=== PATIENT | male | born 1990 | race African-American/Black ===

== ENCOUNTER 2023-05-04 09:52 | Inpatient (IN) | payer OTHER ==
[2023-05-04] MEDS ORDERED: SODIUM CHLORIDE 0.9% 500 ML 500 ML IV STA ×2 (10:00→12:11)
[2023-05-04] MEDS ORDERED: SODIUM CHLORIDE 0.9% 1,000 ML IV STA ×2 (10:02→12:11)
[2023-05-04] MEDS ORDERED: ACETAMINOPHEN IV (For NPO) 1,000 MG in EMPTY BAG 1 BAG IVPB STA (10:03)
--- NOTE | 2023-05-04 10:24 | ED ---
General Adult HPI - General Chief complaint: Fever Stated complaint: abd pain Time Seen by Provider: 05/04/23 09:54 Source: patient, RN notes reviewed Mode of arrival: EMS Limitations: no limitations - History of Present Illness Initial comments: Patient is a pleasant 32-year-old male presenting to the emergency department with abdominal discomfort. Onset of symptoms was yesterday. Discomfort has worsened. Discomfort is right lower abdomen/inguinal region. Patient has associated fevers. Also started yesterday. No history of similar symptoms pr eviously. Patient has been at [facility] for last 2 weeks secondary to history of cocaine use. Patient denies any history of injecting drugs. - Related Data Allergies Allergy/AdvReac Type Severity Reaction Status Date / Time iodine Allergy Itching Verified 05/04/23 13:36 Review of Systems ROS Statement: Those systems with pertinent positive or pertinent negative responses have been documented in the HPI. ROS Other: All systems not noted in ROS Statement are negative. Constitutional: Reports: as per HPI, fever, chills Eyes: Denies: eye pain ENT: Denies: ear pain Respiratory: Denies: cough Cardiovascular: Denies: chest pain Endocrine: Denies: fatigue Gastrointestinal: Reports: as per HPI, abdominal pain, nausea. Denies: vomiting Genitourinary: Reports: other (Right inguinal discomfort). Denies: urgency, dysuria, frequency, hematuria, discharge, testicular pain, testicular mass Skin: Denies: rash Neurological: Denies: weakness Past Medical History Past Medical History: Diabetes Mellitus Additional Past Medical History / Comment(s): Type one diabetes, osteosarcoma, Additional Past Surgical History / Comment(s): right knee replacement, right lobectomy Past Psychological History: No Psychological Hx Reported Smoking Status: Current every day smoker, Vaper Past Alcohol Use History: None Reported Past Drug Use History: Cocaine General Exam Limitations: no limitations General appearance: alert, in no apparent distress Head exam: Present: normocephalic Eye exam: Present: normal appearance ENT exam: Present: normal oropharynx Neck exam: Present: normal inspection Respiratory exam: Present: normal lung sounds bilaterally Cardiovascular Exam: Present: regular rate, normal rhythm Expanded Peripheral pulses: 2+: Posterior Tibialis (R), Posterior Tibialis (L) GI/Abdominal exam: Present: soft, tenderness (Mild right lower abdomen), normal bowel sounds. Absent: distended, guarding, rebound, rigid, pulsatile mass exam: Present: other (Right inguinal tender lymphadenopathy). Absent: testicular tenderness, urethral discharge, scrotal swelling Extremities exam: Present: normal inspection Neurological exam: Present: alert Psychiatric exam: Present: normal affect, normal mood Skin exam: Present: normal color Course Vital Signs 05/04/23 05/04/23 09:55 12:08 Temperature 103.1 F H 102.5 F H Pulse Rate 135 H 122 H Respiratory 20 18 Rate Blood Pressure 114/74 89/55 O2 Sat by Pulse 97 99 Oximetry EKG Findings - EKG Results: EKG: interpreted by ERMD, sinus rhythm, normal axis, normal QRS, normal ST/T EKG shows: tachycardia Medical Decision Making - Medical Decision Making Was pt. sent in by a medical professional or institution (, [facility], HEMMING AND TACKING MACHINE OPERATOR, urgent care, hospital, or skilled nursing...) When possible be specific @ -Patient was sent in by [place] Did you speak to anyone other than the patient for history (EMS, parent, family, police, friend...)? What history was obtained from this source @ -No Did you review nursing and triage notes (agree or disagree)? Why? @ -I reviewed and agree with nursing and triage notes Were old charts reviewed (outside hosp., previous admission, EMS record, old EKG, old radiological studies, urgent care reports/EKG's, skilled nursing records)? Report findings @ -Chart review from [place] Differential Diagnosis (chest pain, altered mental status, abdominal pain women, abdominal pain men, vaginal bleeding, weakness, fever, dyspnea, syncope, headache, dizziness, GI bleed, back pain, seizure, CVA, palpatations, mental health, musculoskeletal)? @ -Differential Abdominal Pain Men: Appendicitis, cholecystitis, diverticulosis, ischemic bowel, pancreatitis, he patitis, UTI, gastroenteritis, AAA, incarcerated hernia, bowel obstruction, constipation, inflammatory bowel, hepatitis, peptic ulcer disease, splenic infarction, perforated viscus, testicular torsion, this is not meant to be an all-inclusive list EKG interpreted by me (3pts min.). @ -As above X-rays interpreted by me (1pt min.). @ -None done CT interpreted by me (1pt min.). @ -Computed tomography scan does have lymphadenopathy U/S interpreted by me (1pt. min.). @ -None done What testing was considered but not performed or refused? (CT, X-rays, U/S, labs)? Why? @ -None What meds were considered but not given or refused? Why? @ -None Did you discuss the management of the patient with other professionals (professionals i.e. , PA, HEMMING AND TACKING MACHINE OPERATOR, lab, RT, psych nurse, social research assistant, spanish lecturer, teacher, business services officer, community case manager)? Give summary @ -Case was discussed with Dr. Miles will admit covering hospital call. He will come evaluate patient and requests no consults at this time. Was smoking cessation discussed for >3mins.? @ -No Was critical care preformed (if so, how long)? @ -No Were there social determinants of health that impacted care today? How? (Homelessness, low income, unemployed, alcoholism, drug addiction, transportat ion, low edu. Level, literacy, decrease access to med. care, [place] [facility], rehab)? @ -No Was there de-escalation of care discussed even if they declined (Discuss DNR or withdrawal of care, Hospice)? DNR status @ -No What co-morbidities impacted this encounter? (DM, HTN, Smoking, COPD, CAD, Cancer, CVA, ARF, Chemo, Hep., AIDS, mental health diagnosis, sleep apnea, morbid obesity)? @ -None Was patient admitted / discharged? Hospital course, mention meds given and route, prescriptions, significant lab abnormalities, going to OR and other pertinent info. @ -Patient reevaluated and improved. Blood pressure improved with fluid boluses. Etiology of fevers unclear at this time. Patient will be admitted with further evaluation. IV antibiotics will be continued. Undiagnosed new problem with uncertain prognosis? @ -No Drug Therapy requiring intensive monitoring for toxicity (Heparin, Nitro, Insulin, Cardizem)? @ -No Were any procedures done? @ -No Diagnosis/symptom? @ -Lymphadenopathy, abdominal pain Acute, or Chronic, or Acute on Chronic? @ -Acute Uncomplicated (without systemic symptoms) or Complicated (systemic symptoms)? @ -Complicated with band cells and toxic granulation Side effects of treatment? @ -No Exacerbation, Progression, or Severe Exacerbation? @ -No Poses a threat to life or bodily function? How? (Chest pain, [place], [place], pneumonia, PE, COPD, DKA, ARF, appy, cholecystitis, CVA, Diverticulitis, Homicidal, Suicidal, threat to staff... and all critical care pts) @ -No - Lab Data Result diagrams: 05/04/23 10:23 05/04/23 10:23 Lab Results 05/04/23 05/04/23 05/04/23 Range/Units 10:23 10:23 10:23 WBC 9.7 (3.8-10.6) k/uL RBC 4.20 L (4.30-5.90) m/uL Hgb 11.3 L (13.0-17.5) gm/dL Hct 32.9 L (39.0-53.0) % MCV 78.2 L (80.0-100.0) fL MCH 27.0 (25.0-35.0) pg MCHC 34.5 (31.0-37.0) g/dL RDW 17.2 H (11.5-15.5) % Plt Count 160 (150-450) k/uL MPV 9.1 Neutrophils % (Manual) 78 % Band Neuts % (Manual) 18 % Lymphocytes % (Manual) 3 % Monocytes % (Manual) 1 % Basophils % (Manual) 1 % Metamyelocytes % 1 % Neutrophils # (Manual) 9.30 H (1.3-7.7) k/uL Lymphocytes # (Manual) 0.29 L (1.0-4.8) k/uL Monocytes # (Manual) 0.10 (0-1.0) k/uL Basophils # (Manual) 0.10 (0-0.2) k/uL Metamyelocytes # (Man) 0.10 H (0) k/uL Nucleated RBCs 0 (0-0) /100 WBC Manual Slide Review Performed Toxic Granulation Present Anisocytosis Slight Microcytosis Slight PT 9.8 L (10.0-12.5) sec INR 0.9 (<1.2) APTT 25.7 (22.0-30.0) sec Sodium 133 L (137-145) mmol/L Potassium 4.4 (3.5-5.1) mmol/L Chloride 105 (98-107) mmol/L Carbon Dioxide 23 (22-30) mmol/L Anion Gap 5 mmol/L BUN 14 (9-20) mg/dL Creatinine 0.64 L (0.66-1.25) mg/dL Est GFR (CKD-EPI)AfAm >90 (>60 ml/min/1.73 sqM) Est GFR (CKD-EPI)NonAf >90 (>60 ml/min/1.73 sqM) Glucose 138 H (74-99) mg/dL Plasma Lactic Acid Willie (0.7-2.0) mmol/L Calcium 8.5 (8.4-10.2) mg/dL Total Bilirubin 0.9 (0.2-1.3) mg/dL AST 65 H (17-59) U/L ALT 60 H (4-49) U/L Alkaline Phosphatase 67 (38-126) U/L Total Protein 6.1 L (6.3-8.2) g/dL Albumin 3.2 L (3.5-5.0) g/dL Amylase 89 (30-110) U/L Lipase 41 (23-300) U/L Influenza Type A (PCR) (Not Detectd) Influenza Type B (PCR) (Not Detectd) RSV (PCR) (Not Detectd) SARS-CoV-2 (PCR) (Not Detectd) 05/04/23 05/04/23 Range/Units 10:23 10:23 WBC (3.8-10.6) k/uL RBC (4.30-5.90) m/uL Hgb (13.0-17.5) gm/dL Hct (39.0-53.0) % MCV (80.0-100.0) fL MCH (25.0-35.0) pg MCHC (31.0-37.0) g/dL RDW (11.5-15.5) % Plt Count (150-450) k/uL MPV Neutrophils % (Manual) % Band Neuts % (Manual) % Lymphocytes % (Manual) % Monocytes % (Manual) % Basophils % (Manual) % Metamyelocytes % % Neutrophils # (Manual) (1.3-7.7) k/uL Lymphocytes # (Manual) (1.0-4.8) k/uL Monocytes # (Manual) (0-1.0) k/uL Basophils # (Manual) (0-0.2) k/uL Metamyelocytes # (Man) (0) k/uL Nucleated RBCs (0-0) /100 WBC Manual Slide Review Toxic Granulation Anisocytosis Microcytosis PT (10.0-12.5) sec INR (<1.2) APTT (22.0-30.0) sec Sodium (137-145) mmol/L Potassium (3.5-5.1) mmol/L Chloride (98-107) mmol/L Carbon Dioxide (22-30) mmol/L Anion Gap mmol/L BUN (9-20) mg/dL Creatinine (0.66-1.25) mg/dL Est GFR (CKD-EPI)AfAm (>60 ml/min/1.73 sqM) Est GFR (CKD-EPI)NonAf (>60 ml/min/1.73 sqM) Glucose (74-99) mg/dL Plasma Lactic Acid Willie 2.5 H* (0.7-2.0) mmol/L Calcium (8.4-10.2) mg/dL Total Bilirubin (0.2-1.3) mg/dL AST (17-59) U/L ALT (4-49) U/L Alkaline Phosphatase (38-126) U/L Total Protein (6.3-8.2) g/dL Albumin (3.5-5.0) g/dL Amylase (30-110) U/L Lipase (23-300) U/L Influenza Type A (PCR) Not Detected (Not Detectd) Influenza Type B (PCR) Not Detected (Not Detectd) RSV (PCR) Not Detected (Not Detectd) SARS-CoV-2 (PCR) Not Detected (Not Detectd) Disposition Clinical Impression: Lymphadenopathy, Abdominal pain Disposition: ADMITTED IP TO THIS HOSP Condition: Serious Is patient prescribed a controlled substance at d/c from ED?: No Referrals: None,Stated [Primary Care Provider] - 1-2 days Time of Disposition: 13:40
[2023-05-04 11:07] LABS: Anisocytosis Slight; HCT 32.9 % (39.0-53.0); HGB 11.3 gm/dL (13.0-17.5); INR 0.9 (<1.2); MCHC 34.5 g/dL (31.0-37.0); MCV 78.2 fL (80.0-100.0); Mean Platelet Volume 9.1; Microcytosis Slight; Partial Thromboplastin Time 25.7 sec (22.0-30.0); Platelet Count 160 k/uL (150-450); Prothrombin Time 9.8 sec (10.0-12.5); RDW 17.2 % (11.5-15.5); WBC 9.7 k/uL (3.8-10.6)
[2023-05-04 11:16] LABS: ALT 60 U/L (4-49); Albumin 3.2 g/dL (3.5-5.0); Anion Gap 5 mmol/L; Blood Urea Nitrogen 14 mg/dL (9-20); Calcium 8.5 mg/dL (8.4-10.2); Glucose 138 mg/dL (74-99); Sodium 133 mmol/L (137-145); Total Bilirubin 0.9 mg/dL (0.2-1.3)
[2023-05-04 11:46] LABS: Band Neutrophils % 18 %; Lymphocytes # (M) 0.29 k/uL (1.0-4.8); Metamyelocytes % 1 %; Neutrophils % (M) 78 %; Nucleated Red Blood Cells 0 /100 WBC (0-0); Total Cells Counted 200
[2023-05-04 11:48] LABS: Toxic Granulation Present
[2023-05-04 12:00] LABS: AST 65 U/L (17-59); African American GFR (CKD) >90 (>60 ml/min/1.73 sqM); Alkaline Phosphatase 67 U/L (38-126); Amylase 89 U/L (30-110); Carbon Dioxide 23 mmol/L (22-30); Chloride 105 mmol/L (98-107); Lipase 41 U/L (23-300); Non-African American GFR(CKD) >90 (>60 ml/min/1.73 sqM); Potassium 4.4 mmol/L (3.5-5.1); Total Protein 6.1 g/dL (6.3-8.2)
[2023-05-04] MEDS ORDERED: FAMOTIDINE 20 MG/2 ML VIAL IV STA (12:05)
[2023-05-04] MEDS ORDERED: methylPREDNISolone SOD SUCCI 125 MG/2 ML VIAL IV STA (12:05)
[2023-05-04] MEDS ORDERED: diphenhydrAMINE 50 MG/ML 1 ML VIAL IVP STA (12:05)
[2023-05-04] MEDS ORDERED: PIPERACILLIN-TAZOBACTAM 3.375 GM in SODIUM CHLORIDE 0.9% 100 ML IVPB STA (12:07)
--- NOTE | 2023-05-04 13:16 | CT ---
EXAMINATION TYPE: CT abdomen pelvis w con DATE OF EXAM: 05/04/2023 COMPARISON: None INDICATION: fever and rt groin pain DLP: 899.6 mGycm, Automated exposure control for dose reduction was used. CONTRAST: 76ml mL of Isovue 300. Study performed without Oral Contrast TECHNIQUE: Axial images were obtained from above the diaphragm to the pubic rami in the axial plane a t 5 mm thick sections. Reconstructed images are reviewed on the computer in the coronal plane. FINDINGS: Limited CT sections are obtained the lung bases. Some mild infiltrates in the posterior right lung b ase. Correlate for atelectasis. Early pneumonia could be considered.. CT ABDOMEN: Liver: There is moderate fatty infiltration of the liver. Spleen: Normal Pancreas: Normal Adrenal glands: The adrenal glands are normal. Gallbladder: Normal Kidneys: No masses are evident. No hydronephrosis is present. Tiny cortical renal cysts on the post erior lateral left mid kidney. Punctate nonobstructing inferior pole right renal else indications pre sent. Aorta: Normal Inferior vena cava: Normal. CT PELVIS: Fecal debris is throughout the colon. There are fluid filled small bowel loops which are at the upper limits for normal for size. No dilated loops of small bowel are evident. Correlate for ileus. There are loops of bowel which are incompletely distended or lack oral contrast limiting their evaluation. Appendix: Small portion of the appendix visualized appears normal. No suspicious inflammatory changes are evident. Very minimal fluid may be inferior to the cecum. Urinary bladder: Normal. Genitourinary structures: Prostate appears normal. Osseous structures: No suspicious lytic or sclerotic lesions. Lymphadenopathy: No retrocrural adenopathy enlarged by CT criteria is evident. No periaortic or retro caval enlarged lymphadenopathy is evident. There are scattered small retrocaval lymph nodes. No suspi cious mesenteric adenopathy. There may be right iliac chain enlarged nodes measuring 1.1 cm there are prominent right inguinal lymph nodes present. 1.5 and 1.0 cm. Additional adenopathy 1.7 and 2.0 cm y our inferior right inguinal lymph node. There may be some diffuse lower extremity edema greater on th e right. IMPRESSION: 1. Enlarged lymphadenopathy within right inguinal region. Some intrapelvic iliac chain adenopathy ma y also be present on the right. Additional workup is recommended. Consider lymphoma within the differ ential. Other etiologies should be considered. 2. Mild fecal retention. Some ileus within small bowel loops may be present. No definite obstruction identified. 3. Nonobstructing renal stones present bilaterally. 4. Minimal infiltrate at the right lung base. Correlate for atelectasis or pneumonia.
[2023-05-04] MEDS ORDERED: NALOXONE 0.4 MG/ML 1 ML VIAL IV PRN (13:41)
[2023-05-04] MEDS: SODIUM CHLORIDE 0.9% 1,000 ML IV SCH ×2 (13:54→23:21)
--- NOTE | 2023-05-04 14:37 | US ---
EXAMINATION TYPE: US scrotum with doppler. Grayscale and color Doppler Duplex imaging performed of josé luis patricia scrotum. DATE OF EXAM: 05/04/2023 COMPARISON: NONE CLINICAL INDICATION: Male, 32 years old with history of Inguinal pain; Groin pain, fever EXAM MEASUREMENTS: TESTICLES: Right Testicle: 3.5 x 1.4 x 2.7 cm Left Testicle: 3.1 x 1.3 x 2.0 cm EPIDIDYMIS HEAD: Right Epididymis: 0.8 cm Left Epididymis: 0.9 cm Doppler performed to assess for testicular vascularity; good bilateral color flow and waveforms are s een. There is no evidence of testicular torsion. Presence of hydroceles: No Presence of varicoceles: No Small left epi head cyst= 0.4 cm, otherwise no abnormality visualized at this time IMPRESSION: 1. No suspicious acute ultrasound abnormality bilateral testicles
[2023-05-04] MEDS ORDERED: VANCOMYCIN IV PER PHARMACY 1 EACH MISC MISCELLANE PRN (14:39)
[2023-05-04] MEDS ORDERED: VANCOMYCIN 1,500 MG in SODIUM CHLORIDE 0.9% 500 ML 500 ML IVPB ONE (15:00)
--- NOTE | 2023-05-04 15:33 | P.HPIM ---
History of Present Illness H&P Date: 05/04/23 Patient is a 32-year-old male with history of cocaine use polysubstance, nicotine dependence presenting with fevers and chills from [place]. His only complaint is right leg pain mostly in the right inguinal area. He also had some nausea and vomiting. Otherwise, he was having fevers and rigors. He denies any chest pain, shortness of breath, cough, abdominal pain, urinary or bowel complaints. He admits to snorting cocaine, and taking Linda orally, but denies any IV drug use. He smokes about half pack a day. He denies any significant alcohol use. In the ED, temperature was 103.1, pulse 135, respiratory rate 20, blood pressure 114/74, saturating at 97% on room air. EKG showed sinus tachycardia. Abdominal pelvis CT showed enlarged lymphadenopathy within the right inguinal region, some intrapelvic iliac chain adenopathy, mild fecal retention, some ileus, nonobstructing renal stones bilaterally, minimal infiltrate at the right lung base. WBC 9.7, hemoglobin 11.3, platelet 160, band neutrophils 18%, with toxic granulation, sodium 133, creatinine 0.64, lactate 2.5, total bili 0.9, AST 65, ALT 60, ALP 67, lipase 41, respiratory viral panel negative. Patient started on Zosyn 3.375 g every 8 hours, also given 2 L of normal saline. Patient being admitted for severe sepsis. Pertinent positives and negatives as discussed in HPI, a complete review of systems was performed and all other systems are negative. Patient seen and examined at bedside. Vital signs reviewed General: nontoxic, no distress, appears at stated age Derm: warm, dry, right great toe ulceration on the plantar aspect with some purulence, otherwise warm lower extremity Head: atraumatic, normocephalic, symmetric Eyes: EOMI, no lid lag, anicteric sclera, pupils equal round reactive to light ENT: Nose and ears atraumatic Neck: No thyromegaly, supple Mouth: no lip lesion, mucus membranes moist Cardiovascular: S1S2 reg, no murmur, bilateral lower extremity edema Lungs: clear to auscultation bilateral, no rhonchi, no rales, no wheeze, no accessory muscle use Abdominal: soft, nontender to palpation, no guarding, no appreciable organomegaly Ext: no gross muscle atrophy, muscle strength muscle strength 5 out of 5 in all 4 extremities, no contractures Neuro: CN II-XII grossly intact Psych: Alert, oriented, appropriate affect Assessment/Plan: Active: Severe sepsis, with likely source right lower extremity Inguinal lymphadenopathy Polysubstance use Lactic acidosis Transaminitis -Patient is status post 2 L of normal saline, continue normal saline at 130 cc an hour -Zosyn 3.375 g every 8 hours IV, also started on vancomycin pharmacy to dose, monitor renal function -Tylenol as needed, ibuprofen as needed -Repeat lactate -ESR and CRP -Blood cultures pending -Right foot x-rays ordered -ID consulted -Patient has allergic to iodine, already received 125 mg of IV Solu-Medrol, and IV Benadryl and IV Pepcid for his previous scan, consider repeating another CT of right lower extremity The patient is admitted with an anticipated greater than 2 midnight stay as inpatient status for evaluation of. Severe sepsis Surrogate decision-maker: None listed CODE STATUS: Full code DVT prophylaxis: Subcu heparin Anticipated discharge date: Pending clinical course Anticipated discharge place: Pending clinical course A total of 66minutes was spent on the care of this complex patient more than 50% of the time was spent in counseling and care coordination. Past Medical History Past Medical History: Diabetes Mellitus Additional Past Medical History / Comment(s): Type one diabetes, osteosarcoma, Additional Past Surgical History / Comment(s): right knee replacement, right lobectomy Past Psychological History: No Psychological Hx Reported Smoking Status: Current every day smoker, Vaper Past Alcohol Use History: None Reported Past Drug Use History: Cocaine Medications and Allergies Home Medications Medication Instructions Recorded Confirmed Type Acetaminophen Tab [Tylenol] 650 mg PO Q4H PRN 05/04/23 05/04/23 History Calcium/Magnesium/Zinc/Vitamin 1 tab PO TID PRN 05/04/23 05/04/23 History D(334/134/5mg) Ibuprofen [Motrin] 600 mg PO Q6HR PRN 05/04/23 05/04/23 History Icy Hot Topical Cream 1 applic TOPICAL DIRECTED PRN 05/04/23 05/04/23 History Insulin Glargine,Hum.rec.anlog 25 units SQ HS 05/04/23 05/04/23 History [Lantus Solostar Pen] Insulin Regular, Human [NovoLIN R] See Protocol SQ ACHS 05/04/23 05/04/23 History Loperamide [Imodium] 4 mg PO QID PRN 05/04/23 05/04/23 History Mag Hydrox/Aluminum Hyd/Simeth 30 ml PO Q4H PRN 05/04/23 05/04/23 History [Mylanta Maximum Strength Liq] Magnesium Hydroxide [Milk of 2,400 mg PO BID PRN 05/04/23 05/04/23 History Magnesia] Melatonin 5 mg PO HS 05/04/23 05/04/23 History Mirtazapine [Remeron] 15 mg PO HS 05/04/23 05/04/23 History Multivitamins, Thera [Multivitamin 1 tab PO DAILY 05/04/23 05/04/23 History (formulary)] Nicotine 14Mg/24Hr Patch [Habitrol 1 patch TRANSDERM DAILY 05/04/23 05/04/23 History 14Mg/24Hr Patch] Thiamine [Vitamin B-1] 100 mg PO DAILY 05/04/23 05/04/23 History busPIRone HCl [Buspar] 10 mg PO TID 05/04/23 05/04/23 History Allergies Allergy/AdvReac Type Severity Reaction Status Date / Time iodine Allergy Itching Verified 05/04/23 13:36 Physical Exam Vitals: Vital Signs Temp Pulse Resp BP Pulse Ox 05/04/23 15:00 117 H 20 114/70 99 05/04/23 13:30 100.6 F H 126 H 26 H 113/70 100 05/04/23 12:08 102.5 F H 122 H 18 89/55 99 05/04/23 09:55 103.1 F H 135 H 20 114/74 97 Intake and Output 05/04/23 05/04/23 05/04/23 06:59 14:59 22:59 Other: Weight 86.6 kg Results CBC & Chem 7: 05/04/23 10:23 05/04/23 10:23 Labs: Abnormal Lab Results - Last 24 Hours (Table) 05/04/23 05/04/23 05/04/23 Range/Units 10:23 10:23 10:23 RBC 4.20 L (4.30-5.90) m/uL Hgb 11.3 L (13.0-17.5) gm/dL Hct 32.9 L (39.0-53.0) % MCV 78.2 L (80.0-100.0) fL RDW 17.2 H (11.5-15.5) % Neutrophils # (Manual) 9.30 H (1.3-7.7) k/uL Lymphocytes # (Manual) 0.29 L (1.0-4.8) k/uL Metamyelocytes # (Man) 0.10 H (0) k/uL PT 9.8 L (10.0-12.5) sec Sodium 133 L (137-145) mmol/L Creatinine 0.64 L (0.66-1.25) mg/dL Glucose 138 H (74-99) mg/dL Plasma Lactic Acid Willie (0.7-2.0) mmol/L AST 65 H (17-59) U/L ALT 60 H (4-49) U/L Total Protein 6.1 L (6.3-8.2) g/dL Albumin 3.2 L (3.5-5.0) g/dL 05/04/23 Range/Units 10:23 RBC (4.30-5.90) m/uL Hgb (13.0-17.5) gm/dL Hct (39.0-53.0) % MCV (80.0-100.0) fL RDW (11.5-15.5) % Neutrophils # (Manual) (1.3-7.7) k/uL Lymphocytes # (Manual) (1.0-4.8) k/uL Metamyelocytes # (Man) (0) k/uL PT (10.0-12.5) sec Sodium (137-145) mmol/L Creatinine (0.66-1.25) mg/dL Glucose (74-99) mg/dL Plasma Lactic Acid Willie 2.5 H* (0.7-2.0) mmol/L AST (17-59) U/L ALT (4-49) U/L Total Protein (6.3-8.2) g/dL Albumin (3.5-5.0) g/dL
--- NOTE | 2023-05-04 15:56 | XR ---
EXAMINATION TYPE: XR foot complete RT DATE OF EXAM: 05/04/2023 COMPARISON: None HISTORY: Right foot ulcer TECHNIQUE: 3 view right foot FINDINGS: No acute fracture or dislocation is evident. Joint spaces appear preserved. Patient's foot ulcer is not identified. No suspicious cortical erosion to suggest osteomyelitis identified. No radio paque foreign body is evident. Follow-up 3 phase bone scan could be performed for sufficient suspicion of osteomyelitis. IMPRESSION: 1. No acute osseous abnormality radiographically apparent.
[2023-05-04] MEDS ORDERED: DEXTROSE 50% SYRINGE 50 ML IVP PRN ×2 (16:04)
[2023-05-04] MEDS ORDERED: PIPERACILLIN-TAZOBACTAM 3.375 GM in SODIUM CHLORIDE 0.9% 100 ML IVPB SCH (17:00)
[2023-05-04 17:34] LABS: Glucose,Whole Blood 239 mg/dL (70-110)
[2023-05-04] MEDS: ACETAMINOPHEN TAB 325 MG TAB PO PRN (17:43)
[2023-05-04] MEDS: CEFEPIME 2 GM in SODIUM CHLORIDE 0.9% 100 ML IVPB SCH (17:47)
[2023-05-04] MEDS: INSULIN ASPART (NovoLOG) 100 UNIT/ML VIAL SQ SCH ×2 (17:51→20:57)
[2023-05-04 18:08] LABS: Appearance,Urine Clear (Clear); Bilirubin,Urine Negative (Negative); Blood,Urine Moderate (Negative); Color,Urine Colorless; Glucose,Urine (UA) 2+ (Negative); Ketones,Urine Trace (Negative); Leukocyte Esterase,Urine Negative (Negative); Nitrite,Urine Negative (Negative); PH, Urine 6.5 (5.0-8.0); Protein,Urine 1+ (Negative); RBC,Urine 56 /hpf (0-5); Specific Gravity,Urine 1.032 (1.001-1.035); Urobilinogen,Urine <2.0 mg/dL (<2.0); WBC,Urine 2 /hpf (0-5)
[2023-05-04 20:36] LABS: Glucose,Whole Blood 327 mg/dL (70-110)
[2023-05-04] MEDS: IBUPROFEN 400 MG TAB PO PRN (20:56)
[2023-05-04] MEDS: MIRTAZAPINE 15 MG TAB PO SCH (20:56)
[2023-05-04] MEDS: busPIRone HCl 10 MG TAB PO SCH (20:57)
[2023-05-05] MEDS ORDERED: VANCOMYCIN 1,500 MG in SODIUM CHLORIDE 0.9% 500 ML 500 ML IVPB SCH ×2
[2023-05-05] MEDS: CEFEPIME 2 GM in SODIUM CHLORIDE 0.9% 100 ML IVPB SCH ×4 (00:40→22:47)
[2023-05-05] MEDS: SODIUM CHLORIDE 0.9% 1,000 ML IV SCH ×3 (01:39→20:14)
[2023-05-05] MEDS: LOPERAMIDE 2 MG CAP PO PRN ×2 (03:33→20:11)
[2023-05-05 06:32] LABS: Glucose,Whole Blood 287 mg/dL (70-110)
[2023-05-05] MEDS: INSULIN ASPART (NovoLOG) 100 UNIT/ML VIAL SQ SCH ×4 (06:52→20:11)
[2023-05-05] MEDS: THIAMINE 100 MG TAB PO SCH (08:01)
[2023-05-05] MEDS: busPIRone HCl 10 MG TAB PO SCH ×3 (08:01→22:47)
[2023-05-05] MEDS: NICOTINE 14MG/24HR PATCH TRANSDERM SCH ×2 (08:01→08:09)
[2023-05-05] MEDS: PANTOPRAZOLE 40 MG/10 ML VIAL IV SCH (08:01)
--- NOTE | 2023-05-05 08:59 | XR ---
EXAMINATION TYPE: XR chest 2V DATE OF EXAM: 05/05/2023 COMPARISON: None INDICATION: Fever TECHNIQUE: Frontal and lateral views of the chest are obtained. FINDINGS: The heart size is normal. The pulmonary vasculature is normal. Small right pleural effusion is present.. No suspicious consolidations. IMPRESSION: 1. Small right pleural effusion
[2023-05-05 09:46] LABS: Anisocytosis Slight; Basophils % (A) 0 %; Eosinophils % (A) 0 %; HCT 32.9 % (39.0-53.0); HGB 10.9 gm/dL (13.0-17.5); Lymphocytes # (A) 0.5 k/uL (1.0-4.8); Lymphocytes % (A) 6 %; MCH 26.7 pg (25.0-35.0); MCHC 33.2 g/dL (31.0-37.0); MCV 80.6 fL (80.0-100.0); Mean Platelet Volume 8.5; Microcytosis Slight; Monocytes # (A) 0.3 k/uL (0-1.0); Monocytes % (A) 3 %; Neutrophils # (A) 7.7 k/uL (1.3-7.7); Neutrophils % (A) 89 %; Platelet Count 172 k/uL (150-450); RBC 4.08 m/uL (4.30-5.90); RDW 17.2 % (11.5-15.5); WBC 8.6 k/uL (3.8-10.6)
[2023-05-05 10:21] LABS: ALT 64 U/L (4-49); AST 60 U/L (17-59); African American GFR (CKD) >90 (>60 ml/min/1.73 sqM); Alkaline Phosphatase 61 U/L (38-126); Anion Gap 5 mmol/L; Blood Urea Nitrogen 16 mg/dL (9-20); Calcium 8.4 mg/dL (8.4-10.2); Carbon Dioxide 21 mmol/L (22-30); Chloride 106 mmol/L (98-107); Globulin 2.9 g/dL; Glucose 261 mg/dL (74-99); Non-African American GFR(CKD) >90 (>60 ml/min/1.73 sqM); Potassium 4.9 mmol/L (3.5-5.1); Sodium 132 mmol/L (137-145); Total Protein 5.9 g/dL (6.3-8.2)
[2023-05-05 11:20] LABS: Glucose,Whole Blood 317 mg/dL (70-110)
--- NOTE | 2023-05-05 13:51 | P.PN ---
Subjective Progress Note Date: 05/05/23 Hospital Course: 32-year-old male with history of cocaine use polysubstance, nicotine dependence presenting with fevers and chills from [place]. In the ED, temperature was 103.1, pulse 135, respiratory rate 20, blood pressure 114/74, saturating at 97% on room air. EKG showed sinus tachycardia. Abdominal pelvis CT showed enlarged lymphadenopathy within the right inguinal region, some intrapelvic iliac chain adenopathy, mild fecal retention, some ileus, nonobstructing renal stones bilaterally, minimal infiltrate at the right lung base. WBC 9.7, hemoglobin 11.3, platelet 160, band neutrophils 18%, with toxic granulation, sodium 133, creatinine 0.64, lactate 2.5, total bili 0.9, AST 65, ALT 60, ALP 67, lipase 41, respiratory viral panel negative. Patient started on Zosyn 3.375 g every 8 ho urs, also given 2 L of normal saline. Patient being admitted for severe sepsis. Currently on IV cefepime, overall improving. Subjective: Patient seen and examined at bedside. No acute events overnight. He claims he is feeling a lot better today. Pertinent positives and negatives as discussed above, a complete review of systems was performed and all other systems are negative. Vitals Signs Reviewed. General: nontoxic, no distress, appears at stated age Derm: warm, dry, right great toe ulceration on the plantar aspect with some purulence, otherwise warm lower extremity Head: atraumatic, normocephalic, symmetric Eyes: EOMI, no lid lag, anicteric sclera, pupils equal round reactive to light ENT: Nose and ears atraumatic Neck: No thyromegaly, supple Mouth: no lip lesion, mucus membranes moist Cardiovascular: S1S2 reg, no murmur, bilateral lower extremity edema Lungs: clear to auscultation bilateral, no rhonchi, no rales, no wheeze, no accessory muscle use Abdominal: soft, nontender to palpation, no guarding, no appreciable organomegaly Ext: no gross muscle atrophy, muscle strength muscle strength 5 out of 5 in all 4 extremities, no contractures Neuro: CN II-XII grossly intact Psych: Alert, oriented, appropriate affect Data Reviewed Today: Pertinent Labs: WBC 8.6, hemoglobin 10.9, sodium 132, bicarb 21, creatinine 0.64, blood sugars range between 2 61-3 27, Imaging: Chest x-ray independently interpreted, shows small right pleural effusion. Assessment and Plan: Severe sepsis, with likely source right lower extremity Inguinal lymphadenopathy Polysubstance use Lactic acidosis, resolved Transaminitis, stable -continue normal saline at 130 cc an hour -Currently on IV cefepime 2 g every 8 hours per ID -Further ID recommendations pending -Tylenol as needed, ibuprofen as needed -Blood cultures pending Insulin-dependent diabetes -Continue sliding scale insulin Patient is very noncompliant with his medications Chronic: Depression/anxiety DVT ppx: Lovenox Code status: Full code Anticipated discharge place: Pending clinical course Anticipated discharge time: Pending clinical course Objective - Vital Signs Vital signs: Vital Signs Temp 99.1 F 05/05/23 07:08 Pulse 106 H 05/05/23 07:08 Resp 19 05/05/23 07:08 BP 103/70 05/05/23 07:08 Pulse Ox 98 05/05/23 07:08 FiO2 Intake & Output 05/04/23 05/05/23 05/05/23 18:59 06:59 18:59 Intake Total 390 1100 Output Total 500 Balance -640 703 9801 Weight 86.6 kg Intake: Intake, IV Titration 390 1100 Amount Cefepime 2 gm In Sodium 100 Chloride 0.9% 100 ml @ 25 mls/hr IVPB Q8HR [facility] Rx# :[id number] Sodium Chloride 0.9% 1, 390 1000 000 ml @ 130 mls/hr IV . Q7H42M [facility] Rx#:[id number] Output: Urine 500 - Labs CBC & Chem 7: 05/05/23 09:16 05/05/23 09:16 Labs: Abnormal Lab Results - Last 24 Hours (Table) 05/04/23 05/04/23 05/04/23 Range/Units 15:33 17:32 17:39 RBC (4.30-5.90) m/uL Hgb (13.0-17.5) gm/dL Hct (39.0-53.0) % RDW (11.5-15.5) % Lymphocytes # (1.0-4.8) k/uL Sodium (137-145) mmol/L Carbon Dioxide (22-30) mmol/L Creatinine (0.66-1.25) mg/dL Glucose (74-99) mg/dL POC Glucose (mg/dL) 239 H (70-110) mg/dL AST (17-59) U/L ALT (4-49) U/L C-Reactive Protein 16.2 H (<1.0) mg/dL Total Protein (6.3-8.2) g/dL Albumin (3.5-5.0) g/dL Urine Protein 1+ H (Negative) Urine Glucose (UA) 2+ H (Negative) Urine Ketones Trace H (Negative) Urine Blood Moderate H (Negative) Urine RBC 56 H (0-5) /hpf 05/04/23 05/05/23 05/05/23 Range/Units 20:35 06:31 09:16 RBC 4.08 L (4.30-5.90) m/uL Hgb 10.9 L (13.0-17.5) gm/dL Hct 32.9 L (39.0-53.0) % RDW 17.2 H (11.5-15.5) % Lymphocytes # 0.5 L (1.0-4.8) k/uL Sodium (137-145) mmol/L Carbon Dioxide (22-30) mmol/L Creatinine (0.66-1.25) mg/dL Glucose (74-99) mg/dL POC Glucose (mg/dL) 327 H 287 H (70-110) mg/dL AST (17-59) U/L ALT (4-49) U/L C-Reactive Protein (<1.0) mg/dL Total Protein (6.3-8.2) g/dL Albumin (3.5-5.0) g/dL Urine Protein (Negative) Urine Glucose (UA) (Negative) Urine Ketones (Negative) Urine Blood (Negative) Urine RBC (0-5) /hpf 05/05/23 05/05/23 Range/Units 09:16 11:17 RBC (4.30-5.90) m/uL Hgb (13.0-17.5) gm/dL Hct (39.0-53.0) % RDW (11.5-15.5) % Lymphocytes # (1.0-4.8) k/uL Sodium 132 L (137-145) mmol/L Carbon Dioxide 21 L (22-30) mmol/L Creatinine 0.64 L (0.66-1.25) mg/dL Glucose 261 H (74-99) mg/dL POC Glucose (mg/dL) 317 H (70-110) mg/dL AST 60 H (17-59) U/L ALT 64 H (4-49) U/L C-Reactive Protein (<1.0) mg/dL Total Protein 5.9 L (6.3-8.2) g/dL Albumin 3.0 L (3.5-5.0) g/dL Urine Protein (Negative) Urine Glucose (UA) (Negative) Urine Ketones (Negative) Urine Blood (Negative) Urine RBC (0-5) /hpf
[2023-05-05] MEDS: ACETAMINOPHEN TAB 325 MG TAB PO PRN (15:53)
[2023-05-05 16:29] LABS: Glucose,Whole Blood 257 mg/dL (70-110)
[2023-05-05 20:02] LABS: Glucose,Whole Blood 349 mg/dL (70-110)
[2023-05-05] MEDS: MIRTAZAPINE 15 MG TAB PO SCH (20:11)
[2023-05-06] MEDS: ACETAMINOPHEN TAB 325 MG TAB PO PRN (00:12)
[2023-05-06] MEDS: IBUPROFEN 400 MG TAB PO PRN ×2 (02:11→21:44)
[2023-05-06] MEDS: SODIUM CHLORIDE 0.9% 1,000 ML IV SCH ×3 (05:31→21:44)
[2023-05-06 06:30] LABS: Glucose,Whole Blood 319 mg/dL (70-110)
[2023-05-06] MEDS: INSULIN ASPART (NovoLOG) 100 UNIT/ML VIAL SQ SCH ×4 (06:49→21:43)
[2023-05-06 08:29] LABS: HCT 27.7 % (39.6-50.0); HGB 9.2 g/dL (13.0-17.0); MCH 25.5 pg (27.0-32.0); MCHC 33.2 g/dL (32.0-37.0); MCV 76.7 FL (80.0-97.0); Mean Platelet Volume 11.2 FL (9.5-12.2); NRBC Per 100 WBC 0 X 10*3/uL (0.00-0.01); Platelet Count 164 X 10*3/uL (140-440); RBC 3.61 X 10*6/uL (4.40-5.60); WBC 7.27 X 10*3/uL (4.50-10.00)
[2023-05-06 08:48] LABS: BUN/Creat Ratio 18.71 Ratio (12.00-20.00); Blood Urea Nitrogen 13.1 mg/dL (9.0-27.0); Carbon Dioxide 24.1 mmol/L (21.6-31.8); Chloride 102 mmol/L (96-109); Glucose 271 mg/dL (70-110); Potassium 4.9 mmol/L (3.5-5.5); Sodium 134 mmol/L (135-145)
[2023-05-06 09:24] LABS: Basophils # (A) 0.03 X 10*3/uL (0.00-0.10); Basophils % (A) 0.4 %; Eosinophils # (A) 0.12 X 10*3/uL (0.04-0.35); Eosinophils % (A) 1.7 %; Hypochromasia (M) 2+; Lymphocytes # (A) 1.02 X 10*3/uL (0.90-5.00); Microcytosis (M) 2+; Monocytes # (A) 0.33 X 10*3/uL (0.20-1.00); Monocytes % (A) 4.5 %; Neutrophils # (A) 5.73 X 10*3/uL (1.80-7.70); Neutrophils % (A) 78.8 %; Target Cells 2+
[2023-05-06] MEDS: NICOTINE 14MG/24HR PATCH TRANSDERM SCH (09:38)
[2023-05-06] MEDS: busPIRone HCl 10 MG TAB PO SCH ×3 (09:38→21:44)
[2023-05-06] MEDS: CEFEPIME 2 GM in SODIUM CHLORIDE 0.9% 100 ML IVPB SCH (09:38)
[2023-05-06] MEDS: THIAMINE 100 MG TAB PO SCH (09:38)
[2023-05-06] MEDS: ENOXAPARIN 40 MG/0.4 ML SYRINGE SQ SCH (09:38)
--- NOTE | 2023-05-06 09:59 | P.CONS ---
History of Present Illness - Reason for Consult Consult date: 05/05/23 - History of Present Illness Patient is a 32-year-old -Malaysian male with a past medical history significant for diabetes mellitus current everyday smoker patient has been in [place] for 2 weeks for cocaine use and rehabilitation patient was brought into the ER complaining of abdominal discomfort and this patient symptoms started the day before presentation to the hospital with associated fever no nausea no vomiting on arrival to the ER patient noticed to have a fever of 103.1 degrees for night patient was tachycardic mildly hypertensive but not hypoxic patient did have white count of 9.7 creatinine was normal televisit was mildly elevated amylase lipase was normal urine is negative influenza RSV COVID testing was negative blood culture obtained currently pending patient did have a abdominal pelvis CT enlarged lymphadenopathy within the right inguinal region some intrapelvic iliac chain adenopathy may also be present mild fecal retention patient also have a scrotal ultrasound no suspicious acute abnormality was noticed patient did have a wound on the plantar aspect of right big toe physical has been there for couple of weeks also noticed to have increasing swelling redness to the right lower extremity with mild aching pain and no drainage patient did have x-ray that was negative for any bony abnormality patient was started on vancomycin and Zosyn infectious disease was consulted for further management of antibiotic therapy Past Medical History Past Medical History: Diabetes Mellitus Additional Past Medical History / Comment(s): Type one diabetes, osteosarcoma, History of Any Multi-Drug Resistant Organisms: None Reported Additional Past Surgical History / Comment(s): right knee replacement, right lobectomy Past Psychological History: No Psychological Hx Reported Smoking Status: Current every day smoker, Vaper Past Alcohol Use History: None Reported Additional Past Alcohol Use History / Comment(s): Patient has been at [facility] for two week for cocaine use. Has been smoking sincce he has been a teenager Past Drug Use History: Cocaine Medications and Allergies Home Medications Medication Instructions Recorded Confirmed Type Acetaminophen Tab [Tylenol] 650 mg PO Q4H PRN 05/04/23 05/04/23 History Calcium/Magnesium/Zinc/Vitamin 1 tab PO TID PRN 05/04/23 05/04/23 History D(334/134/5mg) Ibuprofen [Motrin] 600 mg PO Q6HR PRN 05/04/23 05/04/23 History Icy Hot Topical Cream 1 applic TOPICAL DIRECTED PRN 05/04/23 05/04/23 History Insulin Glargine,Hum.rec.anlog 25 units SQ HS 05/04/23 05/04/23 History [Lantus Solostar Pen] Insulin Regular, Human [NovoLIN R] See Protocol SQ ACHS 05/04/23 05/04/23 History Loperamide [Imodium] 4 mg PO QID PRN 05/04/23 05/04/23 History Mag Hydrox/Aluminum Hyd/Simeth 30 ml PO Q4H PRN 05/04/23 05/04/23 History [Mylanta Maximum Strength Liq] Magnesium Hydroxide [Milk of 2,400 mg PO BID PRN 05/04/23 05/04/23 History Magnesia] Melatonin 5 mg PO HS 05/04/23 05/04/23 History Mirtazapine [Remeron] 15 mg PO HS 05/04/23 05/04/23 History Multivitamins, Thera [Multivitamin 1 tab PO DAILY 05/04/23 05/04/23 History (formulary)] Nicotine 14Mg/24Hr Patch [Habitrol 1 patch TRANSDERM DAILY 05/04/23 05/04/23 H istory 14Mg/24Hr Patch] Thiamine [Vitamin B-1] 100 mg PO DAILY 05/04/23 05/04/23 History busPIRone HCl [Buspar] 10 mg PO TID 05/04/23 05/04/23 History Allergies Allergy/AdvReac Type Severity Reaction Status Date / Time iodine Allergy Itching Verified 05/04/23 13:36 shellfish derived [Shellfish] Allergy Rash/Hives Verified 05/04/23 18:03 Physical Exam Vitals: Vital Signs Temp Pulse Resp BP Pulse Ox 05/05/23 13:00 103.1 F H 96 17 91/54 98 05/05/23 07:08 99.1 F 106 H 19 103/70 98 05/05/23 02:00 98.5 F 96 18 94/56 98 05/05/23 01:31 96 20 05/05/23 00:42 98.7 F 96 20 86/45 96 05/04/23 22:49 99.6 F 05/04/23 21:00 103.1 F H 117 H 05/04/23 19:43 102.8 F H 117 H 16 91/55 97 Intake and Output 05/05/23 05/05/23 05/05/23 06:59 14:59 22:59 Intake Total 1100 Output Total 600 Balance 1100 -600 Intake: Intake, IV Titration 1100 Amount Cefepime 2 gm In Sodium 100 Chloride 0.9% 100 ml @ 25 mls/hr IVPB Q8HR [facility] Rx# :[id number] Sodium Chloride 0.9% 1, 1000 000 ml @ 130 mls/hr IV . Q7H42M [facility] Rx#:[id number] Output: Urine 600 Results CBC & Chem 7: 05/06/23 04:29 05/06/23 04:29 Labs: Abnormal Lab Results - Last 24 Hours (Table) 05/04/23 05/04/23 05/05/23 Range/Units 17:39 20:35 06:31 RBC (4.30-5.90) m/uL Hgb (13.0-17.5) gm/dL Hct (39.0-53.0) % RDW (11.5-15.5) % Lymphocytes # (1.0-4.8) k/uL Sodium (137-145) mmol/L Carbon Dioxide (22-30) mmol/L Creatinine (0.66-1.25) mg/dL Glucose (74-99) mg/dL POC Glucose (mg/dL) 327 H 287 H (70-110) mg/dL Hemoglobin A1c (<=6.0) % AST (17-59) U/L ALT (4-49) U/L Total Protein (6.3-8.2) g/dL Albumin (3.5-5.0) g/dL Urine Protein 1+ H (Negative) Urine Glucose (UA) 2+ H (Negative) Urine Ketones Trace H (Negative) Urine Blood Moderate H (Negative) Urine RBC 56 H (0-5) /hpf 05/05/23 05/05/23 05/05/23 Range/Units 09:16 09:16 09:16 RBC 4.08 L (4.30-5.90) m/uL Hgb 10.9 L (13.0-17.5) gm/dL Hct 32.9 L (39.0-53.0) % RDW 17.2 H (11.5-15.5) % Lymphocytes # 0.5 L (1.0-4.8) k/uL Sodium 132 L (137-145) mmol/L Carbon Dioxide 21 L (22-30) mmol/L Creatinine 0.64 L (0.66-1.25) mg/dL Glucose 261 H (74-99) mg/dL POC Glucose (mg/dL) (70-110) mg/dL Hemoglobin A1c 17.9 H (<=6.0) % AST 60 H (17-59) U/L ALT 64 H (4-49) U/L Total Protein 5.9 L (6.3-8.2) g/dL Albumin 3.0 L (3.5-5.0) g/dL Urine Protein (Negative) Urine Glucose (UA) (Negative) Urine Ketones (Negative) Urine Blood (Negative) Urine RBC (0-5) /hpf 05/05/23 05/05/23 Range/Units 11:17 16:27 RBC (4.30-5.90) m/uL Hgb (13.0-17.5) gm/dL Hct (39.0-53.0) % RDW (11.5-15.5) % Lymphocytes # (1.0-4.8) k/uL Sodium (137-145) mmol/L Carbon Dioxide (22-30) mmol/L Creatinine (0.66-1.25) mg/dL Glucose (74-99) mg/dL POC Glucose (mg/dL) 317 H 257 H (70-110) mg/dL Hemoglobin A1c (<=6.0) % AST (17-59) U/L ALT (4-49) U/L Total Protein (6.3-8.2) g/dL Albumin (3.5-5.0) g/dL Urine Protein (Negative) Urine Glucose (UA) (Negative) Urine Ketones (Negative) Urine Blood (Negative) Urine RBC (0-5) /hpf Assessment and Plan Plan: 1patient presented to hospital with sepsis Source is likely right lower extremity cellulitis in this patient who did have a right big toe plantar wound likely the source of this infection 2we will keep the patient on cefepime and vancomycin while waiting for the culture to finalize 3dry protective dressing to the right big toe wound We will follow on clinical condition and cultures to further adjust medication if needed Thank you for this consultation we will follow the patient along with you Dictation was produced using markedup dictation software. please excuse any grammatical, word or spelling errors.
[2023-05-06] MEDS: PANTOPRAZOLE 40 MG/10 ML VIAL IV SCH (10:14)
[2023-05-06 11:09] LABS: Glucose,Whole Blood 300 mg/dL (70-110)
--- NOTE | 2023-05-06 13:38 | P.PN ---
Subjective Progress Note Date: 05/06/23 32-year-old male with history of polysubstance abuse, nicotine dependence presenting with fevers and chills from [place]. In the ED, temperature was 103.1, pulse 135, respiratory rate 20, blood pressure 114/74, saturating at 97% on room air. EKG showed sinus tachycardia. CT AP showed enlarged lympha denopathy within the right inguinal region, some intrapelvic iliac chain adenopathy, mild fecal retention, some ileus, nonobstructing renal stones bilaterally, minimal infiltrate at the right lung base. WBC 9.7, hemoglobin 11.3, platelet 160, band neutrophils 18%, with toxic granulation, sodium 133, creatinine 0.64, lactate 2.5, total bili 0.9, AST 65, ALT 60, ALP 67, lipase 41, respiratory viral panel negative. Patient started on Zosyn 3.375 g every 8 hours, also given 2 L of normal saline. Patient being admitted for severe sepsis. Currently on IV cefepime, overall improving. 05/06 Patient was seen and examined. Tmax 102.9 over the past 24H. Patient reports feeling well. Discussed with Dr. Rizzo, believes source to be RLE cellulitis. CBC Hg 9.2 Hct 27.7 MCV 76.7. BMP Na 134, glu 271, Ca 8. General: Non toxic, no distress, appears at stated age Derm: Warm, dry Head: Atraumatic, normocephalic, symmetric Eyes: EOMI, no lid lag, anicteric sclera Mouth: No lip lesion, mucus membranes moist Cardiovascular: S1S2 reg, no murmur Lungs: CTA bilateral, no rhonchi, no rales, no accessory muscle use Ext: No gross muscle atrophy, no edema, no contractures Neuro: no focal neuro deficits Psych: Alert, oriented, appropriate affect Based on my assessment of this patient, this patient meets a high complexity level of care. Patient has an acute diagnosis of sepsis due to RLE cellultis that poses a threat to life or bodily function. Sepsis due to RLE cellulitis: Cefpime 2g IV TID. Tylenol and Ibuprofen PRN for fever. NS at 130 cc/hr. Telemetry monitoring. Follow BCx. Diabetes mellitus with hyperglyemia: ISS. Add Levemir 25 units QHS. Accuchecks ACHS. Hypoglycemic precautions. Microcytic anemia: Downtrending. Likely dilutional. Probably thalassemia with target cells. No signs of active bleeding. Transfuse if Hg < 7. CODE STATUS: FULL CODE. DVT Prophylaxis: Lovenox SQ GI Prophylaxis: Protonix IV. Designated medical POA if patient is not able to make medical decisions for themselves: I have reviewed the following research consultant notes: I have reviewed the results of the following tests: CBC, BMP. I have ordered the following tests: I have discussed the care of this patient with the following independent historian: I have independently interpreted the following test below: I have discussed the management of this patient with the following physician: Discussed with Dr. Rizzo as above. This patient has a high risk of morbidity due to the following reasons: Patient requires adjustments in insulin which requires intensive monitoring for hypoglycemic episodes. Objective - Vital Signs Vital signs: Vital Signs Temp 98.5 F 05/06/23 07:18 Pulse 96 05/06/23 07:18 Resp 17 05/06/23 07:18 BP 98/61 05/06/23 07:18 Pulse Ox 95 05/06/23 07:18 FiO2 Intake & Output 05/05/23 05/06/23 05/06/23 18:59 06:59 18:59 Intake Total 1100 880 Output Total 600 1200 600 Balance 500 -320 -600 Intake: Intake, IV Titration 1100 880 Amount Cefepime 2 gm In Sodium 100 100 Chloride 0.9% 100 ml @ 25 mls/hr IVPB Q8HR [facility] Rx# :[id number] Sodium Chloride 0.9% 1, 1000 780 000 ml @ 130 mls/hr IV . Q7H42M [facility] Rx#:[id number] Output: Urine 600 1200 600 Other: Voiding Method Toilet - Labs CBC & Chem 7: 05/06/23 04:29 05/06/23 04:29 Labs: Abnormal Lab Results - Last 24 Hours (Table) 05/05/23 05/05/23 05/05/23 Range/Units 09:16 16:27 20:01 RBC (4.40-5.60) X 10*6/uL Hgb (13.0-17.0) g/dL Hct (39.6-50.0) % MCV (80.0-97.0) FL MCH (27.0-32.0) pg RDW (11.5-14.5) % Hypochromasia (manual) Microcytosis (manual) Target Cells Sodium (135-145) mmol/L Glucose (70-110) mg/dL POC Glucose (mg/dL) 257 H 349 H (70-110) mg/dL Hemoglobin A1c 17.9 H (<=6.0) % Calcium (8.7-10.3) mg/dL 05/06/23 05/06/23 05/06/23 Range/Units 04:29 04:29 06:29 RBC 3.61 L (4.40-5.60) X 10*6/uL Hgb 9.2 L (13.0-17.0) g/dL Hct 27.7 L (39.6-50.0) % MCV 76.7 L (80.0-97.0) FL MCH 25.5 L (27.0-32.0) pg RDW 16.0 H (11.5-14.5) % Hypochromasia (manual) 2+ A Microcytosis (manual) 2+ A Target Cells 2+ A Sodium 134 L (135-145) mmol/L Glucose 271 H (70-110) mg/dL POC Glucose (mg/dL) 319 H (70-110) mg/dL Hemoglobin A1c (<=6.0) % Calcium 8.0 L (8.7-10.3) mg/dL 05/06/23 Range/Units 11:08 RBC (4.40-5.60) X 10*6/uL Hgb (13.0-17.0) g/dL Hct (39.6-50.0) % MCV (80.0-97.0) FL MCH (27.0-32.0) pg RDW (11.5-14.5) % Hypochromasia (manual) Microcytosis (manual) Target Cells Sodium (135-145) mmol/L Glucose (70-110) mg/dL POC Glucose (mg/dL) 300 H (70-110) mg/dL Hemoglobin A1c (<=6.0) % Calcium (8.7-10.3) mg/dL Microbiology - Last 24 Hours (Table) 05/04/23 12:05 Blood Culture - Preliminary Blood 05/04/23 12:20 Blood Culture - Preliminary Blood
[2023-05-06 14:20] VITALS: BMI 25.9
[2023-05-06 16:55] LABS: Glucose,Whole Blood 396 mg/dL (70-110)
[2023-05-06] MEDS: AMPICILLIN-SULBACTAM 3 GM in SODIUM CHLORIDE 0.9% 100 ML IVPB SCH ×2 (17:37→23:15)
[2023-05-06 19:53] LABS: Glucose,Whole Blood 382 mg/dL (70-110)
[2023-05-06] MEDS: INSULIN DETEMIR (LEVEMIR) 100 UNIT/ML SYR SQ SCH (21:43)
[2023-05-06] MEDS: MIRTAZAPINE 15 MG TAB PO SCH (21:44)
--- NOTE | 2023-05-06 21:46 | P.PN ---
Subjective Progress Note Date: 05/06/23 Principal diagnosis: Reason for follow-up is right lower extremity cellulitis and fever Patient is a 32-year-old -[place] male with a past medical history significant for diabetes mellitus current everyday smoker patient has been in [place] for 2 weeks for cocaine use and rehabilitation patient was brought into the ER complaining of abdominal discomfort, patient did have CT abdominal pelvis today shows enlarged right groin lymphadenopathy has noticed to have rig ht lower extremity cellulitis with a wound on the plantar aspect of the right big toe. On today's evaluation that is 05/06/2023 patient did spike a fever of 102.9 degrees for the height at midnight, the patient is afebrile since then patient is breathing comfortably no chest pain shortness of breath or cough no nausea no vomiting no abdominal pain no diarrhea. Patient white count is 7.27, creatinine is 0.7 Objective - Vital Signs Vital signs: Vital Signs Temp 98.5 F 05/06/23 07:18 Pulse 96 05/06/23 07:18 Resp 17 05/06/23 07:18 BP 98/61 05/06/23 07:18 Pulse Ox 95 05/06/23 07:18 FiO2 Intake & Output 05/05/23 05/06/23 05/06/23 18:59 06:59 18:59 Intake Total 1100 880 Output Total 600 1200 Balance 500 -320 Intake: Intake, IV Titration 1100 880 Amount Cefepime 2 gm In Sodium 100 100 Chloride 0.9% 100 ml @ 25 mls/hr IVPB Q8HR [facility] Rx# :[id number] Sodium Chloride 0.9% 1, 1000 780 000 ml @ 130 mls/hr IV . Q7H42M [facility] Rx#:[id number] Output: Urine 600 1200 Other: Voiding Method Toilet - Exam GENERAL DESCRIPTION: Middle-age male lying in bed in no distress RESPIRATORY SYSTEM: Unlabored breathing , decreased breath sounds at bases HEART: S1 S2 regular rate and rhythm , ABDOMEN: Soft , no tenderness EXTREMITIES: Right big toe plantar area did have a callus no purulent drainage did have a swelling and warmth to the right leg - Labs CBC & Chem 7: 05/06/23 04:29 05/06/23 04:29 Labs: Abnormal Lab Results - Last 24 Hours (Table) 05/05/23 05/05/23 05/05/23 Range/Units 09:16 09:16 11:17 RBC (4.40-5.60) X 10*6/uL Hgb (13.0-17.0) g/dL Hct (39.6-50.0) % MCV (80.0-97.0) FL MCH (27.0-32.0) pg RDW (11.5-14.5) % Hypochromasia (manual) Microcytosis (manual) Target Cells Sodium 132 L (137-145) mmol/L Carbon Dioxide 21 L (22-30) mmol/L Creatinine 0.64 L (0.66-1.25) mg/dL Glucose 261 H (74-99) mg/dL POC Glucose (mg/dL) 317 H (70-110) mg/dL Hemoglobin A1c 17.9 H (<=6.0) % Calcium (8.7-10.3) mg/dL AST 60 H (17-59) U/L ALT 64 H (4-49) U/L Total Protein 5.9 L (6.3-8.2) g/dL Albumin 3.0 L (3.5-5.0) g/dL 05/05/23 05/05/23 05/06/23 Range/Units 16:27 20:01 04:29 RBC 3.61 L (4.40-5.60) X 10*6/uL Hgb 9.2 L (13.0-17.0) g/dL Hct 27.7 L (39.6-50.0) % MCV 76.7 L (80.0-97.0) FL MCH 25.5 L (27.0-32.0) pg RDW 16.0 H (11.5-14.5) % Hypochromasia (manual) 2+ A Microcytosis (manual) 2+ A Target Cells 2+ A Sodium (137-145) mmol/L Carbon Dioxide (22-30) mmol/L Creatinine (0.66-1.25) mg/dL Glucose (74-99) mg/dL POC Glucose (mg/dL) 257 H 349 H (70-110) mg/dL Hemoglobin A1c (<=6.0) % Calcium (8.7-10.3) mg/dL AST (17-59) U/L ALT (4-49) U/L Total Protein (6.3-8.2) g/dL Albumin (3.5-5.0) g/dL 05/06/23 05/06/23 Range/Units 04:29 06:29 RBC (4.40-5.60) X 10*6/uL Hgb (13.0-17.0) g/dL Hct (39.6-50.0) % MCV (80.0-97.0) FL MCH (27.0-32.0) pg RDW (11.5-14.5) % Hypochromasia (manual) Microcytosis (manual) Target Cells Sodium 134 L (137-145) mmol/L Carbon Dioxide (22-30) mmol/L Creatinine (0.66-1.25) mg/dL Glucose 271 H (74-99) mg/dL POC Glucose (mg/dL) 319 H (70-110) mg/dL Hemoglobin A1c (<=6.0) % Calcium 8.0 L (8.7-10.3) mg/dL AST (17-59) U/L ALT (4-49) U/L Total Protein (6.3-8.2) g/dL Albumin (3.5-5.0) g/dL Microbiology - Last 24 Hours (Table) 05/04/23 12:05 Blood Culture - Preliminary Blood 05/04/23 12:20 Blood Culture - Preliminary Blood Assessment and Plan (1) Cellulitis of right lower extremity Current Visit: Yes Status: Acute Code(s): L03.115 - CELLULITIS OF RIGHT LOWER LIMB SNOMED Code(s): 53313255187937027 Plan: 1patient presented to hospital with sepsis Source is likely right lower extremity cellulitis in this patient who did have a right big toe plantar wound likely the source of this infection 2dry protective dressing to the right big toe wound 3-we will discontinue cefepime start the patient on Unasyn and see clinical response, discussed with admitting team Dictation was produced using [email or web address] dictation software. please excuse any gram matical, word or spelling errors. Time with Patient: Less than 30
[2023-05-06] MEDS ORDERED: VANCOMYCIN IV PER PHARMACY 1 EACH MISC MISCELLANE PRN (21:47)
[2023-05-06] MEDS: LOPERAMIDE 2 MG CAP PO PRN (21:48)
[2023-05-06] MEDS: VANCOMYCIN 1,500 MG in SODIUM CHLORIDE 0.9% 500 ML 500 ML IVPB SCH (23:58)
[2023-05-07] MEDS: SODIUM CHLORIDE 0.9% 1,000 ML IV SCH ×3 (05:14→22:55)
[2023-05-07] MEDS: AMPICILLIN-SULBACTAM 3 GM in SODIUM CHLORIDE 0.9% 100 ML IVPB SCH ×3 (05:28→17:44)
[2023-05-07] MEDS: VANCOMYCIN 1,500 MG in SODIUM CHLORIDE 0.9% 500 ML 500 ML IVPB SCH ×3 (06:42→22:02)
[2023-05-07 06:55] LABS: Glucose,Whole Blood 143 mg/dL (70-110)
[2023-05-07] MEDS: INSULIN ASPART (NovoLOG) 100 UNIT/ML VIAL SQ SCH ×4 (06:56→22:01)
[2023-05-07 08:59] LABS: Basophils # (A) 0.03 X 10*3/uL (0.00-0.10); Basophils % (A) 0.4 %; Eosinophils # (A) 0.29 X 10*3/uL (0.04-0.35); HCT 26.9 % (39.6-50.0); HGB 8.9 g/dL (13.0-17.0); Lymphocytes # (A) 1.21 X 10*3/uL (0.90-5.00); Lymphocytes % (A) 16.8 %; MCH 25.6 pg (27.0-32.0); MCHC 33.1 g/dL (32.0-37.0); MCV 77.3 FL (80.0-97.0); Mean Platelet Volume 11.1 FL (9.5-12.2); Monocytes # (A) 0.51 X 10*3/uL (0.20-1.00); Monocytes % (A) 7.1 %; NRBC Per 100 WBC 0 X 10*3/uL (0.00-0.01); Neutrophils # (A) 5.14 X 10*3/uL (1.80-7.70); Neutrophils % (A) 71.1 %; Platelet Count 173 X 10*3/uL (140-440); RBC 3.48 X 10*6/uL (4.40-5.60); RDW 15.9 % (11.5-14.5); WBC 7.22 X 10*3/uL (4.50-10.00)
[2023-05-07] MEDS: ENOXAPARIN 40 MG/0.4 ML SYRINGE SQ SCH (09:13)
[2023-05-07] MEDS: busPIRone HCl 10 MG TAB PO SCH ×3 (09:13→22:02)
[2023-05-07] MEDS: THIAMINE 100 MG TAB PO SCH (09:13)
[2023-05-07] MEDS: NICOTINE 14MG/24HR PATCH TRANSDERM SCH ×2 (09:13)
[2023-05-07 09:31] LABS: ALT 48 U/L (10-49); AST 40 U/L (14-35); Albumin 2.8 g/dL (3.8-4.9); Albumin/Globulin Ratio 1.17 Ratio (1.60-3.17); Alkaline Phosphatase 70 U/L (41-126); BUN/Creat Ratio 14.57 Ratio (12.00-20.00); Blood Urea Nitrogen 10.2 mg/dL (9.0-27.0); Calcium 8.1 mg/dL (8.7-10.3); Carbon Dioxide 25.6 mmol/L (21.6-31.8); Chloride 104 mmol/L (96-109); Globulin 2.4 g/dL (1.6-3.3); Glucose 154 mg/dL (70-110); Potassium 3.8 mmol/L (3.5-5.5); Sodium 138 mmol/L (135-145); Total Bilirubin 0.9 mg/dL (0.3-1.2); Total Protein 5.2 g/dL (6.2-8.2)
[2023-05-07] MEDS: PANTOPRAZOLE 40 MG/10 ML VIAL IV SCH (09:52)
[2023-05-07 09:57] LABS: Anisocytosis Slight; HCT 27.1 % (39.0-53.0); MCH 27.3 pg (25.0-35.0); MCHC 34.7 g/dL (31.0-37.0); MCV 78.5 fL (80.0-100.0); Microcytosis Slight; Platelet Count 178 k/uL (150-450); RBC 3.45 m/uL (4.30-5.90); RDW 16.8 % (11.5-15.5); WBC 6.9 k/uL (3.8-10.6)
[2023-05-07 09:59] LABS: African American GFR (CKD) >90 (>60 ml/min/1.73 sqM); Anion Gap 2 mmol/L; Blood Urea Nitrogen 11 mg/dL (9-20); Carbon Dioxide 28 mmol/L (22-30); Chloride 106 mmol/L (98-107); Glucose 73 mg/dL (74-99); Non-African American GFR(CKD) >90 (>60 ml/min/1.73 sqM); Potassium 3.6 mmol/L (3.5-5.1); Sodium 136 mmol/L (137-145)
[2023-05-07 10:03] LABS: HGB 9.4 gm/dL (13.0-17.5)
[2023-05-07 11:17] LABS: Glucose,Whole Blood 124 mg/dL (70-110)
--- NOTE | 2023-05-07 11:42 | P.PN ---
Subjective Progress Note Date: 05/07/23 32-year-old male with history of polysubstance abuse, nicotine dependence presenting with fevers and chills from [place]. In the ED, temperature was 103.1, pulse 135, respiratory rate 20, blood pressure 114/74, saturating at 97% on room air. EKG showed sinus tachycardia. CT AP showed enlarged lympha denopathy within the right inguinal region, some intrapelvic iliac chain adenopathy, mild fecal retention, some ileus, nonobstructing renal stones bilaterally, minimal infiltrate at the right lung base. WBC 9.7, hemoglobin 11.3, platelet 160, band neutrophils 18%, with toxic granulation, sodium 133, creatinine 0.64, lactate 2.5, total bili 0.9, AST 65, ALT 60, ALP 67, lipase 41, respiratory viral panel negative. Patient started on Zosyn 3.375 g every 8 hours, also given 2 L of normal saline. Patient being admitted for severe sepsis. Currently on IV cefepime, overall improving. 05/06 Patient was seen and examined. Tmax 102.9 over the past 24H. Patient reports feeling well. Discussed with Dr. Rizzo, believes source to be RLE cellulitis. CBC Hg 9.2 Hct 27.7 MCV 76.7. BMP Na 134, glu 271, Ca 8. 05/07 Patient was seen and examined. He does not complain of anything. Tmax 102.8F over the past 24H. Currently on Unasyn and Vancomycin for RLE cellulitis. CBC Hg 9.4 Hct 27.1 MCV 78.5. BMP Na 136, glu 73, Ca 8. General: Non toxic, no distress, appears at stated age Derm: Warm, dry Head: Atraumatic, normocephalic, symmetric Eyes: EOMI, no lid lag, anicteric sclera Mouth: No lip lesion, mucus membranes moist Cardiovascular: S1S2 tachycardic, no murmur Lungs: CTA bilateral, no rhonchi, no rales, no accessory muscle use Ext: No gross muscle atrophy, no edema, no contractures Neuro: no focal neuro deficits Psych: Alert, oriented, appropriate affect Based on my assessment of this patient, this patient meets a high complexity level of care. Patient has an acute diagnosis of sepsis due to RLE cellultis that poses a threat to life or bodily function. Sepsis due to RLE cellulitis: Unasyn 3g IV TID. Vancomycin dosed per pharmacy. Tylenol and Ibuprofen PRN for fever. NS at 130 cc/hr. Telemetry monitoring. Follow BCx. Diabetes mellitus with hyperglyemia: ISS. Add Levemir 25 units QHS. Accuchecks ACHS. Hypoglycemic precautions. Microcytic anemia: Downtrending. Likely dilutional. Probably thalassemia with target cells. No signs of active bleeding. Transfuse if Hg < 7. CODE STATUS: FULL CODE. DVT Prophylaxis: Lovenox SQ GI Prophylaxis: Protonix IV. Designated medical POA if patient is not able to make medical decisions for themselves: I have reviewed the following budget consultant notes: ID note. I have reviewed the results of the following tests: CBC, BMP. I have ordered the following tests: CBC, BMP. I have discussed the care of this patient with the following independent his jostin: Discussed with RN. I have independently interpreted the following test below: I have discussed the management of this patient with the following physician: Discussed with Dr. Rizzo as above. This patient has a high risk of morbidity due to the following reasons: Patient requires adjustments in insulin which requires intensive monitoring for hypoglycemic episodes. Patient requires renal function monitoring daily for nephrotoxicity from Vancomycin. Objective - Vital Signs Vital signs: Vital Signs Temp 98.5 F 05/07/23 07:49 Pulse 96 05/07/23 07:49 Resp 16 05/07/23 07:49 BP 93/60 05/07/23 07:49 Pulse Ox 100 05/07/23 07:49 FiO2 Intake & Output 05/06/23 05/07/23 05/07/23 18:59 06:59 18:59 Output Total 600 1300 Balance -600 -1300 Weight 86.6 kg Output: Urine 600 1300 Other: # Voids 3 1 - Labs CBC & Chem 7: 05/07/23 08:41 05/07/23 08:41 Labs: Abnormal Lab Results - Last 24 Hours (Table) 05/06/23 05/06/23 05/07/23 Range/Units 16:54 19:48 06:04 RBC (4.40-5.60) X 10*6/uL Hgb (13.0-17.0) g/dL Hct (39.6-50.0) % MCV (80.0-97.0) FL MCH (27.0-32.0) pg RDW (11.5-14.5) % Sodium (137-145) mmol/L Creatinine (0.66-1.25) mg/dL Glucose (70-110) mg/dL POC Glucose (mg/dL) 396 H 382 H (70-110) mg/dL Calcium (8.7-10.3) mg/dL AST (14-35) U/L C-Reactive Protein (0.00-0.80) mg/dL Total Protein (6.2-8.2) g/dL Albumin (3.8-4.9) g/dL Albumin/Globulin Ratio (1.60-3.17) Ratio Procalcitonin 7.33 H (0.02-0.09) ng/mL 05/07/23 05/07/23 05/07/23 Range/Units 06:04 06:04 06:50 RBC 3.48 L (4.40-5.60) X 10*6/uL Hgb 8.9 L (13.0-17.0) g/dL Hct 26.9 L (39.6-50.0) % MCV 77.3 L (80.0-97.0) FL MCH 25.6 L (27.0-32.0) pg RDW 15.9 H (11.5-14.5) % Sodium (137-145) mmol/L Creatinine (0.66-1.25) mg/dL Glucose 154 H (70-110) mg/dL POC Glucose (mg/dL) 143 H (70-110) mg/dL Calcium 8.1 L (8.7-10.3) mg/dL AST 40 H (14-35) U/L C-Reactive Protein 26.10 H (0.00-0.80) mg/dL Total Protein 5.2 L (6.2-8.2) g/dL Albumin 2.8 L (3.8-4.9) g/dL Albumin/Globulin Ratio 1.17 L (1.60-3.17) Ratio Procalcitonin (0.02-0.09) ng/mL 05/07/23 05/07/23 05/07/23 Range/Units 08:41 08:41 11:15 RBC 3.45 L (4.40-5.60) X 10*6/uL Hgb 9.4 L D (13.0-17.0) g/dL Hct 27.1 L (39.6-50.0) % MCV 78.5 L (80.0-97.0) FL MCH (27.0-32.0) pg RDW 16.8 H (11.5-14.5) % Sodium 136 L (137-145) mmol/L Creatinine 0.65 L (0.66-1.25) mg/dL Glucose 73 L (70-110) mg/dL POC Glucose (mg/dL) 124 H (70-110) mg/dL Calcium 8.0 L (8.7-10.3) mg/dL AST (14-35) U/L C-Reactive Protein (0.00-0.80) mg/dL Total Protein (6.2-8.2) g/dL Albumin (3.8-4.9) g/dL Albumin/Globulin Ratio (1.60-3.17) Ratio Procalcitonin (0.02-0.09) ng/mL Microbiology - Last 24 Hours (Table) 05/04/23 12:05 Blood Culture - Preliminary Blood 05/04/23 12:20 Blood Culture - Preliminary Blood
[2023-05-07] MEDS: LOPERAMIDE 2 MG CAP PO PRN ×2 (16:11→22:03)
[2023-05-07 16:36] LABS: Glucose,Whole Blood 299 mg/dL (70-110)
[2023-05-07 20:25] LABS: Glucose,Whole Blood 233 mg/dL (70-110)
[2023-05-07] MEDS: INSULIN DETEMIR (LEVEMIR) 100 UNIT/ML SYR SQ SCH (22:01)
[2023-05-07] MEDS: MIRTAZAPINE 15 MG TAB PO SCH (22:02)
--- NOTE | 2023-05-07 23:24 | P.PN ---
Subjective Progress Note Date: 05/07/23 Principal diagnosis: Reason for follow-up is right lower extremity cellulitis and fever Patient is a 32-year-old -[place] male with a past medical history significant for diabetes mellitus current everyday smoker patient has been in [place] for 2 weeks for cocaine use and rehabilitation patient was brought into the ER complaining of abdominal discomfort, patient did have CT abdominal pelvis today shows enlarged right groin lymphadenopathy has noticed to have rig ht lower extremity cellulitis with a wound on the plantar aspect of the right big toe. On today's evaluation that is 05/07/2023, the patient did spike a fever last evening of 102.8 F patient is afebrile this morning the patient is breathing comfortably on room air denies any chest pain shortness of breath or cough no nausea vomiting no abdominal pain or diarrhea. Denies any worsening pain to the right foot patient did lost nail to the left big toe. The patient white count of 6.9, creatinine 0.65 blood culture has been negative so far Objective - Vital Signs Vital signs: Vital Signs Temp 98.5 F 05/07/23 07:49 Pulse 96 05/07/23 07:49 Resp 16 05/07/23 07:49 BP 93/60 05/07/23 07:49 Pulse Ox 100 05/07/23 07:49 FiO2 Intake & Output 05/06/23 05/07/23 05/07/23 18:59 06:59 18:59 Output Total 600 1300 Balance -600 -1300 Weight 86.6 kg Output: Urine 600 1300 Other: # Voids 3 1 - Exam GENERAL DESCRIPTION: Middle-age male lying in bed in no distress RESPIRATORY SYSTEM: Unlabored breathing , decreased breath sounds at bases HEART: S1 S2 regular rate and rhythm , ABDOMEN: Soft , no tenderness EXTREMITIES: Right big toe plantar area did have a callus no purulent drainage did have a swelling and warmth to the right leg - Labs CBC & Chem 7: 05/07/23 08:41 05/07/23 08:41 Labs: Abnormal Lab Results - Last 24 Hours (Table) 05/06/23 05/06/23 05/06/23 Range/Units 11:08 16:54 19:48 RBC (4.40-5.60) X 10*6/uL Hgb (13.0-17.0) g/dL Hct (39.6-50.0) % MCV (80.0-97.0) FL MCH (27.0-32.0) pg RDW (11.5-14.5) % Sodium (137-145) mmol/L Creatinine (0.66-1.25) mg/dL Glucose (70-110) mg/dL POC Glucose (mg/dL) 300 H 396 H 382 H (70-110) mg/dL Calcium (8.7-10.3) mg/dL AST (14-35) U/L C-Reactive Protein (0.00-0.80) mg/dL Total Protein (6.2-8.2) g/dL Albumin (3.8-4.9) g/dL Albumin/Globulin Ratio (1.60-3.17) Ratio Procalcitonin (0.02-0.09) ng/mL 05/07/23 05/07/23 05/07/23 Range/Units 06:04 06:04 06:04 RBC 3.48 L (4.40-5.60) X 10*6/uL Hgb 8.9 L (13.0-17.0) g/dL Hct 26.9 L (39.6-50.0) % MCV 77.3 L (80.0-97.0) FL MCH 25.6 L (27.0-32.0) pg RDW 15.9 H (11.5-14.5) % Sodium (137-145) mmol/L Creatinine (0.66-1.25) mg/dL Glucose 154 H (70-110) mg/dL POC Glucose (mg/dL) (70-110) mg/dL Calcium 8.1 L (8.7-10.3) mg/dL AST 40 H (14-35) U/L C-Reactive Protein 26.10 H (0.00-0.80) mg/dL Total Protein 5.2 L (6.2-8.2) g/dL Albumin 2.8 L (3.8-4.9) g/dL Albumin/Globulin Ratio 1.17 L (1.60-3.17) Ratio Procalcitonin 7.33 H (0.02-0.09) ng/mL 05/07/23 05/07/23 05/07/23 Range/Units 06:50 08:41 08:41 RBC 3.45 L (4.40-5.60) X 10*6/uL Hgb 9.4 L D (13.0-17.0) g/dL Hct 27.1 L (39.6-50.0) % MCV 78.5 L (80.0-97.0) FL MCH (27.0-32.0) pg RDW 16.8 H (11.5-14.5) % Sodium 136 L (137-145) mmol/L Creatinine 0.65 L (0.66-1.25) mg/dL Glucose 73 L (70-110) mg/dL POC Glucose (mg/dL) 143 H (70-110) mg/dL Calcium 8.0 L (8.7-10.3) mg/dL AST (14-35) U/L C-Reactive Protein (0.00-0.80) mg/dL Total Protein (6.2-8.2) g/dL Albumin (3.8-4.9) g/dL Albumin/Globulin Ratio (1.60-3.17) Ratio Procalcitonin (0.02-0.09) ng/mL Microbiology - Last 24 Hours (Table) 05/04/23 12:05 Blood Culture - Preliminary Blood 05/04/23 12:20 Blood Culture - Preliminary Blood Assessment and Plan (1) Cellulitis of right lower extremity Current Visit: Yes Status: Acute Code(s): L03.115 - CELLULITIS OF RIGHT LOWER LIMB SNOMED Code(s): 67403395424212210 Plan: 1patient presented to hospital with sepsis Source is likely right lower extremity cellulitis in this patient who did have a right big toe plantar wound likely the source of this infection 2dry protective dressing to the right big toe wound 3-patient to continue with Unasyn vancomycin was added last night because of fever culture has been repeated may benefit from CT to the right lower extremity discussed with admitting team Dictation was produced using [employer] dictation software. please excuse any grammatical, word or spelling errors. Time with Patient: Less than 30
[2023-05-08] MEDS: AMPICILLIN-SULBACTAM 3 GM in SODIUM CHLORIDE 0.9% 100 ML IVPB SCH ×3 (01:01→15:34)
[2023-05-08] MEDS: SODIUM CHLORIDE 0.9% 1,000 ML IV SCH ×3 (04:00→22:05)
[2023-05-08] MEDS ORDERED: VANCOMYCIN TROUGH DUE 1 EACH MISC MISCELLANE ONE (06:00)
[2023-05-08 06:09] LABS: Glucose,Whole Blood 145 mg/dL (70-110)
[2023-05-08] MEDS: INSULIN ASPART (NovoLOG) 100 UNIT/ML VIAL SQ SCH ×4 (06:32→22:03)
[2023-05-08] MEDS: VANCOMYCIN 1,500 MG in SODIUM CHLORIDE 0.9% 500 ML 500 ML IVPB SCH ×3 (06:33→22:05)
[2023-05-08 06:36] LABS: African American GFR (CKD) >90 (>60 ml/min/1.73 sqM); Anion Gap 4 mmol/L; Blood Urea Nitrogen 10 mg/dL (9-20); Calcium 7.9 mg/dL (8.4-10.2); Carbon Dioxide 25 mmol/L (22-30); Chloride 104 mmol/L (98-107); Glucose 131 mg/dL (74-99); Non-African American GFR(CKD) >90 (>60 ml/min/1.73 sqM); Potassium 3.6 mmol/L (3.5-5.1); Sodium 133 mmol/L (137-145)
[2023-05-08] MEDS ORDERED: diphenhydrAMINE 50 MG/ML 1 ML VIAL IVP ONE (08:17)
[2023-05-08] MEDS ORDERED: methylPREDNISolone SOD SUCCI 125 MG/2 ML VIAL IV ONE (08:17)
[2023-05-08] MEDS ORDERED: FAMOTIDINE 20 MG/2 ML VIAL IV ONE (08:17)
[2023-05-08] MEDS: ENOXAPARIN 40 MG/0.4 ML SYRINGE SQ SCH (10:26)
[2023-05-08] MEDS: busPIRone HCl 10 MG TAB PO SCH ×3 (10:27→22:02)
[2023-05-08] MEDS: PANTOPRAZOLE 40 MG/10 ML VIAL IV SCH (10:27)
[2023-05-08] MEDS: THIAMINE 100 MG TAB PO SCH (10:27)
[2023-05-08] MEDS: NICOTINE 14MG/24HR PATCH TRANSDERM SCH (10:27)
[2023-05-08 11:32] LABS: Glucose,Whole Blood 168 mg/dL (70-110)
--- NOTE | 2023-05-08 12:05 | CT ---
EXAMINATION TYPE: CT lower leg RT w con CT DLP: 999.7 mGycm, Automated exposure control for dose reduction was used. DATE OF EXAM: 05/08/2023 11:34 AM COMPARISON: None CLINICAL INDICATION:Male, 32 years old with history of cellulitis; PHH, right sided weakness, no desc ription of site of concern given. TECHNIQUE: Axial images were obtained of the right lower leg the uneventful administration of 100 mL of Isovue-300 intravenously. Additional coronal and sagittal reformatted images and soft tissue and b one window were obtained for review. FINDINGS: Post surgical changes from intramedullary argelia fixation our involving the mid and distal rig ht femur with arthroplasty changes of the right knee. Hardware appears intact with appropriate alignm ent. This creates streak artifact which limits evaluation. No osseous erosions. Edematous appearance of the right lower extremity soft tissues with skin thickening. There is a subtle questionable periph eral enhancing fluid collection within the deep posterior lateral right thigh abutting the hardware. Grossly measures 7.3 x 3.3 cm (series 202, image 118 and series 204, image 51). No gas is identified. No acute fracture. No focal muscular atrophy. No definite skin ulceration identified. Moderate distended urinary bladder. Enlarged right inguinal lymph nodes measuring up to 1.4 cm short axis. Visualized vasculature appears unremarkable. IMPRESSION: 1. Extensive postsurgical changes of the right lower extremity with fixation hardware demonstrated. This creates streak artifact which significantly limits evaluation. There is subtle questionable marilynn pheral enhancing fluid collection within the deep posterior lateral right thigh abutting the hardware . Further evaluation with ultrasound is recommended to assess for possible fluid collection. 2. Diffuse right lower extremity edema with skin thickening identified which can be seen with cellul itis. 3. Enlarged right inguinal lymph nodes which are likely reactive to #1.
--- NOTE | 2023-05-08 12:17 | P.PN ---
Subjective Progress Note Date: 05/08/23 Principal diagnosis: Reason for follow-up is right lower extremity cellulitis and fever Patient is a 32-year-old -[place] male with a past medical history significant for diabetes mellitus current everyday smoker patient has been in [place] for 2 weeks for cocaine use and rehabilitation patient was brought into the ER complaining of abdominal discomfort, patient did have CT abdominal pelvis today shows enlarged right groin lymphadenopathy has noticed to have rig ht lower extremity cellulitis with a wound on the plantar aspect of the right big toe. On today's evaluation that is 05/08/2023, the patient did spike another fever of 101 F this morning however the patient mention overall feeling better, the patient is currently breathing comfortably on room air without need for supplemental oxygen oxygen patient denies having any chest pain occasional cough but no sputum production denies any nausea vomiting no abdominal pain no diarrhea, patient denies having any urethral drainage and the penile ulcer or scrotal swelling right leg swelling has improved. Patient creatinine 0.64 white count was 6.9 as of yesterday patient did have multiple cultures has been negative, patient did have a CT of the neck concerning for possible abscess Objective - Vital Signs Vital signs: Vital Signs Temp 101.0 F H 05/08/23 07:00 Pulse 99 05/08/23 07:00 Resp 15 05/08/23 07:00 BP 93/57 05/08/23 07:00 Pulse Ox 100 05/08/23 07:00 FiO2 Intake & Output 05/07/23 05/08/23 05/08/23 18:59 06:59 18:59 Output Total 1750 Balance -1750 Output: Urine 1750 Other: # Voids 1 - Exam GENERAL DESCRIPTION: Middle-age male lying in bed in no distress RESPIRATORY SYSTEM: Unlabored breathing , decreased breath sounds at bases HEART: S1 S2 regular rate and rhythm , ABDOMEN: Soft , no tenderness EXTREMITIES: Right big toe plantar area did have a callus no purulent drainage did have a swelling and warmth to the right leg - Labs CBC & Chem 7: 05/07/23 08:41 05/08/23 06:02 Labs: Abnormal Lab Results - Last 24 Hours (Table) 05/07/23 05/07/23 05/07/23 Range/Units 08:41 08:41 11:15 RBC 3.45 L (4.30-5.90) m/uL Hgb 9.4 L D (13.0-17.5) gm/dL Hct 27.1 L (39.0-53.0) % MCV 78.5 L (80.0-100.0) fL RDW 16.8 H (11.5-15.5) % Sodium 136 L (137-145) mmol/L Creatinine 0.65 L (0.66-1.25) mg/dL Glucose 73 L (74-99) mg/dL POC Glucose (mg/dL) 124 H (70-110) mg/dL Calcium 8.0 L (8.4-10.2) mg/dL 05/07/23 05/07/23 05/08/23 Range/Units 16:34 20:23 06:02 RBC (4.30-5.90) m/uL Hgb (13.0-17.5) gm/dL Hct (39.0-53.0) % MCV (80.0-100.0) fL RDW (11.5-15.5) % Sodium 133 L (137-145) mmol/L Creatinine 0.64 L (0.66-1.25) mg/dL Glucose 131 H (74-99) mg/dL POC Glucose (mg/dL) 299 H 233 H (70-110) mg/dL Calcium 7.9 L (8.4-10.2) mg/dL 05/08/23 Range/Units 06:07 RBC (4.30-5.90) m/uL Hgb (13.0-17.5) gm/dL Hct (39.0-53.0) % MCV (80.0-100.0) fL RDW (11.5-15.5) % Sodium (137-145) mmol/L Creatinine (0.66-1.25) mg/dL Glucose (74-99) mg/dL POC Glucose (mg/dL) 145 H (70-110) mg/dL Calcium (8.4-10.2) mg/dL Microbiology - Last 24 Hours (Table) 05/06/23 21:57 Blood Culture - Preliminary Blood 05/04/23 12:05 Blood Culture - Preliminary Blood 05/04/23 12:20 Blood Culture - Preliminary Blood Assessment and Plan (1) Cellulitis of right lower extremity Current Visit: Yes Status: Acute Code(s): L03.115 - CELLULITIS OF RIGHT LOWER LIMB SNOMED Code(s): 29851497567218957 Plan: 1patient presented to hospital with sepsis Source is likely right lower extremity cellulitis in this patient who did have a right big toe plantar wound likely the source of this infection 2dry protective dressing to the right big toe wound 3-patient CT has been suggestive of abscess and there is also evidence of hardware patient benefit from orthopedics evaluation for drainage of the abscess and deep culture for now continue with the vancomycin and will switch Unasyn to cefepime Dictation was produced using [employer] dictation software. please excuse any grammatical, word or spelling errors. Time with Patient: Less than 30
--- NOTE | 2023-05-08 13:20 | P.PN ---
Subjective Progress Note Date: 05/08/23 32-year-old male with history of polysubstance abuse, nicotine dependence presenting with fevers and chills from [place]. In the ED, temperature was 103.1, pulse 135, respiratory rate 20, blood pressure 114/74, saturating at 97% on room air. EKG showed sinus tachycardia. CT AP showed enlarged lympha denopathy within the right inguinal region, some intrapelvic iliac chain adenopathy, mild fecal retention, some ileus, nonobstructing renal stones bilaterally, minimal infiltrate at the right lung base. WBC 9.7, hemoglobin 11.3, platelet 160, band neutrophils 18%, with toxic granulation, sodium 133, creatinine 0.64, lactate 2.5, total bili 0.9, AST 65, ALT 60, ALP 67, lipase 41, respiratory viral panel negative. Patient started on Zosyn 3.375 g every 8 hours, also given 2 L of normal saline. Patient being admitted for severe sepsis. Currently on IV cefepime, overall improving. 05/06 Patient was seen and examined. Tmax 102.9 over the past 24H. Patient reports feeling well. Discussed with Dr. Rizzo, believes source to be RLE cellulitis. CBC Hg 9.2 Hct 27.7 MCV 76.7. BMP Na 134, glu 271, Ca 8. 05/07 Patient was seen and examined. He does not complain of anything. Tmax 102.8F over the past 24H. Currently on Unasyn and Vancomycin for RLE cellulitis. CBC Hg 9.4 Hct 27.1 MCV 78.5. BMP Na 136, glu 73, Ca 8. 05/08 Patient was seen and examined. Feeling well. Tmax 101F over the past 24H. Currently on Cefepime and Vancomycin per ID recommendations. BMP Na 133, Cr 0.64, glu 131, Ca 7.9. Vanc trough 14.5. Discussed with Dr. Rizzo, obtain CT RLE due to persistent fevers. CT RLE peripheral enhancing fluid collection within the deep posterior lateral right thigh abutting the hardware. Orthopedic surgery consulted for possible I&D of abscess. General: Non toxic, no distress, appears at stated age Derm: Warm, dry Head: Atraumatic, normocephalic, symmetric Eyes: EOMI, no lid lag, anicteric sclera Mouth: No lip lesion, mucus membranes moist Cardiovascular: S1S2 tachycardic, no murmur Lungs: CTA bilateral, no rhonchi, no rales, no accessory muscle use Ext: No gross muscle atrophy, no edema, no contractures Neuro: no focal neuro deficits Psych: Alert, oriented, appropriate affect Based on my assessment of this patient, this patient meets a high complexity level of care. Patient has an acute diagnosis of sepsis due to RLE cellultis that poses a threat to life or bodily function. Sepsis due to RLE abscess: Cefepime 2g IV TID. Vancomycin dosed per pharmacy. Tylenol and Ibuprofen PRN for fever. Decreased NS from 130 to 75 cc/hr. Telemetry monitoring. Follow BCx. Diabetes mellitus with hyperglyemia: ISS. Levemir 25 units QHS. Accuchecks ACHS. Hypoglycemic precautions. Microcytic anemia: Downtrending. Likely dilutional. Probably thalassemia with target cells. No signs of active bleeding. Transfuse if Hg < 7. CODE STATUS: FULL CODE. DVT Prophylaxis: Lovenox SQ GI Prophylaxis: Protonix IV. Designated medical POA if patient is not able to make medical decisions for themselves: I have reviewed the following business analyst consultant notes: ID note. I have reviewed the results of the following tests: BMP. RLE CT I have ordered the following tests: BMP. I have discussed the care of this patient with the following independent historian: I have independently interpreted the following test below: I have discussed the management of this patient with the following physician: Discussed with Dr. Rizzo as above. This patient has a high risk of morbidity due to the following reasons: Patient requires renal function monitoring daily for nephrotoxicity from Vancomycin. Objective - Vital Signs Vital signs: Vital Signs Temp 101.0 F H 05/08/23 07:00 Pulse 99 05/08/23 07:00 Resp 15 05/08/23 07:00 BP 93/57 05/08/23 07:00 Pulse Ox 100 05/08/23 07:00 FiO2 Intake & Output 05/07/23 05/08/23 05/08/23 18:59 06:59 18:59 Output Total 1750 2300 Balance -1750 -2300 Output: Urine 1750 2300 Other: Voiding Method Toilet # Voids 1 - Labs CBC & Chem 7: 05/07/23 08:41 05/08/23 06:02 Labs: Abnormal Lab Results - Last 24 Hours (Table) 05/07/23 05/07/23 05/08/23 Range/Units 16:34 20:23 06:02 Sodium 133 L (137-145) mmol/L Creatinine 0.64 L (0.66-1.25) mg/dL Glucose 131 H (74-99) mg/dL POC Glucose (mg/dL) 299 H 233 H (70-110) mg/dL Calcium 7.9 L (8.4-10.2) mg/dL 05/08/23 05/08/23 Range/Units 06:07 11:31 Sodium (137-145) mmol/L Creatinine (0.66-1.25) mg/dL Glucose (74-99) mg/dL POC Glucose (mg/dL) 145 H 168 H (70-110) mg/dL Calcium (8.4-10.2) mg/dL Microbiology - Last 24 Hours (Table) 05/06/23 21:57 Blood Culture - Preliminary Blood 05/04/23 12:05 Blood Culture - Preliminary Blood 05/04/23 12:20 Blood Culture - Preliminary Blood
[2023-05-08] MEDS: CEFEPIME 2 GM in SODIUM CHLORIDE 0.9% 100 ML IVPB SCH ×2 (15:51→23:23)
[2023-05-08 16:53] LABS: Glucose,Whole Blood 434 mg/dL (70-110)
[2023-05-08] MEDS ORDERED: INSULIN ASPART (NovoLOG) 100 UNIT/ML VIAL SQ ONE (17:15)
[2023-05-08 20:09] LABS: Glucose,Whole Blood 375 mg/dL (70-110)
[2023-05-08] MEDS: MIRTAZAPINE 15 MG TAB PO SCH (22:02)
[2023-05-08] MEDS: INSULIN DETEMIR (LEVEMIR) 100 UNIT/ML SYR SQ SCH (22:03)
[2023-05-08] MEDS: LOPERAMIDE 2 MG CAP PO PRN (22:03)
[2023-05-09 01:33] LABS: Glucose,Whole Blood 425 mg/dL (70-110)
[2023-05-09 06:03] LABS: Glucose,Whole Blood 363 mg/dL (70-110)
[2023-05-09] MEDS: VANCOMYCIN 1,500 MG in SODIUM CHLORIDE 0.9% 500 ML 500 ML IVPB SCH ×2 (06:27→16:19)
[2023-05-09] MEDS: INSULIN ASPART (NovoLOG) 100 UNIT/ML VIAL SQ SCH ×2 (06:28→12:47)
[2023-05-09 08:09] LABS: Anisocytosis Slight; HCT 28.7 % (39.0-53.0); HGB 9.5 gm/dL (13.0-17.5); MCH 26.4 pg (25.0-35.0); MCHC 33.2 g/dL (31.0-37.0); MCV 79.4 fL (80.0-100.0); Mean Platelet Volume 9.9; Microcytosis Slight; Platelet Count 246 k/uL (150-450); Poikilocytosis Slight; RBC 3.62 m/uL (4.30-5.90); RDW 16.9 % (11.5-15.5); WBC 8.4 k/uL (3.8-10.6)
--- NOTE | 2023-05-09 08:50 | P.PN ---
Progress Note - Text Progress Note Date: 05/09/23 We recommend transfer to [place], where is surgeon that performed his previous surgeries is located. He recently had a revision to the right distal femur replacement in February 2023. Transfer is in progress and awaiting insurance authorization.
[2023-05-09 08:52] LABS: African American GFR (CKD) >90 (>60 ml/min/1.73 sqM); Anion Gap 4 mmol/L; Blood Urea Nitrogen 17 mg/dL (9-20); Calcium 8.3 mg/dL (8.4-10.2); Carbon Dioxide 26 mmol/L (22-30); Chloride 107 mmol/L (98-107); Glucose 287 mg/dL (74-99); Non-African American GFR(CKD) >90 (>60 ml/min/1.73 sqM); Potassium 4.6 mmol/L (3.5-5.1); Sodium 137 mmol/L (137-145)
[2023-05-09 08:56] VITALS: BP 96/64; PULSE 82; RESP 16; TEMP 97.6
[2023-05-09] MEDS: ENOXAPARIN 40 MG/0.4 ML SYRINGE SQ SCH (09:27)
[2023-05-09] MEDS: THIAMINE 100 MG TAB PO SCH (09:28)
[2023-05-09] MEDS: CEFEPIME 2 GM in SODIUM CHLORIDE 0.9% 100 ML IVPB SCH ×2 (09:28→16:19)
[2023-05-09] MEDS: NICOTINE 14MG/24HR PATCH TRANSDERM SCH (09:28)
[2023-05-09] MEDS: busPIRone HCl 10 MG TAB PO SCH ×2 (09:28→16:19)
[2023-05-09] MEDS: PANTOPRAZOLE 40 MG/10 ML VIAL IV SCH (09:28)
[2023-05-09 11:31] LABS: Glucose,Whole Blood 233 mg/dL (70-110)
--- NOTE | 2023-05-09 11:47 | P.DS ---
Providers Date of admission: 05/04/23 13:42 Expected date of discharge: 05/09/23 Attending physician: Van Chatterjee MD Consults: 05/04/23 15:25 Consult Physician Routine Consulting Provider: Mannie Rizzo Consult Reason/Comments: Sepsis Do you want consulting provider notified?: Yes 05/08/23 13:15 Consult Physician Routine Consulting Provider: Deejay Gonsalez Consult Reason/Comments: Infected hardware, abscess in need of draining? Do you want consulting provider notified?: Yes Primary care physician: Stated None Hospital Course: 32-year-old male with history of polysubstance abuse, nicotine dependence presenting with fevers and chills from [place]. In the ED, temperature was 103.1, pulse 135, respiratory rate 20, blood pressure 114/74, saturating at 97% on room air. EKG showed sinus tachycardia. CT AP showed enlarged lymphadenopathy within the right inguinal region, some intrapelvic iliac chain adenopathy, mild fecal retention, some ileus, nonobstructing renal stones bilaterally, minimal infiltrate at the right lung base. WBC 9.7, hemoglobin 11.3, platelet 160, band neutrophils 18%, with toxic granulation, sodium 133, creatinine 0.64, lactate 2.5, total bili 0.9, AST 65, ALT 60, ALP 67, lipase 41, respiratory viral panel negative. Patient started on Zosyn 3.375 g every 8 hours, also given 2 L of normal saline. Patient being admitted for severe sepsis. Currently on IV cefepime, overall improving. 05/06 Patient was seen and examined. Tmax 102.9 over the past 24H. Patient reports feeling well. Discussed with Dr. Rizzo, believes source to be RLE cellulitis. CBC Hg 9.2 Hct 27.7 MCV 76.7. BMP Na 134, glu 271, Ca 8. 05/07 Patient was seen and examined. He does not complain of anything. Tmax 102.8F over the past 24H. Currently on Unasyn and Vancomycin for RLE cellulitis. CBC Hg 9.4 Hct 27.1 MCV 78.5. BMP Na 136, glu 73, Ca 8. 05/08 Patient was seen and examined. Feeling well. Tmax 101F over the past 24H. Currently on Cefepime and Vancomycin per ID recommendations. BMP Na 133, Cr 0.64, glu 131, Ca 7.9. Vanc trough 14.5. Discussed with Dr. Rizzo, obtain CT RLE due to persistent fevers. CT RLE peripheral enhancing fluid collection within the deep posterior lateral right thigh abutting the hardware. Orthopedic surgery consulted for possible I&D of abscess. Orthopedic surgery recommended transfer to [facility] since he had his surgery there. The case was discussed with the transfer center, Dr. Contreras agreed for transfer. 05/09 Patient was seen and examined. No acute events overnight. No complaints. Tmax 101F over the past 24H. Discussed with case management, insurance authorization is pending. Awaiting transfer to [facility]. CBC Hg 9.5 Hct 28.7 MCV 79.4. BMP Cr 0.56, glu 287, Ca 8.3. General: Non toxic, no distress, appears at stated age Derm: Warm, dry Head: Atraumatic, normocephalic, symmetric Eyes: EOMI, no lid lag, anicteric sclera Mouth: No lip lesion, mucus membranes moist Cardiovascular: S1S2 tachycardic, no murmur Lungs: CTA bilateral, no rhonchi, no rales, no accessory muscle use Ext: No gross muscle atrophy, no edema, no contractures Neuro: no focal neuro deficits Psych: Alert, oriented, appropriate affect Discharge Diagnosis: Sepsis due to RLE abscess possibly due to infected hardware. Diabetes mellitus with hyperglycemia Microcytic anemia This complex discharge took 35 minutes to complete. Patient Condition at Discharge: Serious Plan - Discharge Summary Discharge Rx Participant: No New Discharge Prescriptions: No Action Insulin Glargine,Hum.rec.anlog [Lantus Solostar Pen] 25 units SQ HS Acetaminophen Tab [Tylenol] 650 mg PO Q4H PRN PRN Reason: Fever And/ Or Pain Thiamine [Vitamin B-1] 100 mg PO DAILY Insulin Regular, Human [NovoLIN R] See Protocol SQ ACHS Mag Hydrox/Aluminum Hyd/Simeth [Mylanta Maximum Strength Liq] 30 ml PO Q4H PRN PRN Reason: Indigestion Ibuprofen [Motrin] 600 mg PO Q6HR PRN PRN Reason: Pain busPIRone HCl [Buspar] 10 mg PO TID Calcium/Magnesium/Zinc/Vitamin D(334/134/5mg) 1 tab PO TID PRN PRN Reason: muscle cramps Nicotine 14Mg/24Hr Patch [Habitrol 14Mg/24Hr Patch] 1 patch TRANSDERM DAILY Mirtazapine [Remeron] 15 mg PO HS Multivitamins, Thera [Multivitamin (formulary)] 1 tab PO DAILY Magnesium Hydroxide [Milk of Magnesia] 2,400 mg PO BID PRN PRN Reason: Constipation Melatonin 5 mg PO HS Loperamide [Imodium] 4 mg PO QID PRN PRN Reason: Diarrhea Icy Hot Topical Cream 1 applic TOPICAL DIRECTED PRN PRN Reason: Pain Discharge Medication List Acetaminophen Tab [Tylenol] 650 mg PO Q4H PRN 05/04/23 [History] Calcium/Magnesium/Zinc/Vitamin D(334/134/5mg) 1 tab PO TID PRN 05/04/23 [History] Ibuprofen [Motrin] 600 mg PO Q6HR PRN 05/04/23 [History] Icy Hot Topical Cream 1 applic TOPICAL DIRECTED PRN 05/04/23 [History] Insulin Glargine,Hum.rec.anlog [Lantus Solostar Pen] 25 units SQ HS 05/04/23 [History] Insulin Regular, Human [NovoLIN R] See Protocol SQ ACHS 05/04/23 [History] Loperamide [Imodium] 4 mg PO QID PRN 05/04/23 [History] Mag Hydrox/Aluminum Hyd/Simeth [Mylanta Maximum Strength Liq] 30 ml PO Q4H PRN 05/04/23 [History] Magnesium Hydroxide [Milk of Magnesia] 2,400 mg PO BID PRN 05/04/23 [History] Melatonin 5 mg PO HS 05/04/23 [History] Mirtazapine [Remeron] 15 mg PO HS 05/04/23 [History] Multivitamins, Thera [Multivitamin (formulary)] 1 tab PO DAILY 05/04/23 [History] Nicotine 14Mg/24Hr Patch [Habitrol 14Mg/24Hr Patch] 1 patch TRANSDERM DAILY 05/04/23 [History] Thiamine [Vitamin B-1] 100 mg PO DAILY 05/04/23 [History] busPIRone HCl [Buspar] 10 mg PO TID 05/04/23 [History] Follow up Appointment(s)/Referral(s): None,Stated [Primary Care Provider] - 1-2 days Activity/Diet/Wound Care/Special Instructions: Call [place] at discharge to arrange transport back - [phone]. If they cannot transport, send patient by cab, hospital to pay.
--- NOTE | 2023-05-09 15:47 | P.PN ---
Subjective Progress Note Date: 05/09/23 Principal diagnosis: Reason for follow-up is right lower extremity cellulitis and fever Patient is a 32-year-old -[place] male with a past medical history significant for diabetes mellitus current everyday smoker patient has been in [place] for 2 weeks for cocaine use and rehabilitation patient was brought into the ER complaining of abdominal discomfort, patient did have CT abdominal pelvis today shows enlarged right groin lymphadenopathy has noticed to have rig ht lower extremity cellulitis with a wound on the plantar aspect of the right big toe. On today's evaluation that is 05/09/2023, patient did have resolution of his fever and is afebrile this morning, the patient is breathing comfortably on room air denies any chest pain shortness of breath or cough no nausea vomiting no abdominal pain no diarrhea has been reported, patient has any worsening pain to the right lower extremity white count is 8.4, creatinine 0.56, CT was suspicious for an abscess Objective - Vital Signs Vital signs: Vital Signs Temp 97.6 F 05/09/23 08:22 Pulse 82 05/09/23 08:22 Resp 16 05/09/23 08:22 BP 96/64 05/09/23 08:22 Pulse Ox 93 L 05/09/23 08:22 FiO2 Intake & Output 05/08/23 05/09/23 05/09/23 18:59 06:59 18:59 Intake Total 1220 Output Total 2300 Balance -2300 1220 Intake: Intake, IV Titration 1220 Amount Cefepime 2 gm In Sodium 100 Chloride 0.9% 100 ml @ 25 mls/hr IVPB Q8HR [facility] Rx# :[id number] Sodium Chloride 0.9% 1, 120 000 ml @ 75 mls/hr IV . [id number] [facility] Rx#:[id number] Vancomycin 1,500 mg In 1000 Sodium Chloride 0.9% 500 ml 500 ml @ 167 mls/hr IVPB Q8H [facility] Rx#: [id number] Output: Urine 2300 Other: Voiding Method Toilet Toilet Toilet # Voids 4 - Exam GENERAL DESCRIPTION: Middle-age male lying in bed in no distress RESPIRATORY SYSTEM: Unlabored breathing , decreased breath sounds at bases HEART: S1 S2 regular rate and rhythm , ABDOMEN: Soft , no tenderness EXTREMITIES: Right big toe plantar area did have a callus no purulent drainage did have a swelling and warmth to the right leg - Labs CBC & Chem 7: 05/09/23 07:11 05/09/23 07:11 Labs: Abnormal Lab Results - Last 24 Hours (Table) 05/08/23 05/08/23 05/09/23 Range/Units 16:52 20:01 01:27 RBC (4.30-5.90) m/uL Hgb (13.0-17.5) gm/dL Hct (39.0-53.0) % MCV (80.0-100.0) fL RDW (11.5-15.5) % Creatinine (0.66-1.25) mg/dL Glucose (74-99) mg/dL POC Glucose (mg/dL) 434 H 375 H 425 H (70-110) mg/dL Calcium (8.4-10.2) mg/dL 05/09/23 05/09/23 05/09/23 Range/Units 05:53 07:11 07:11 RBC 3.62 L (4.30-5.90) m/uL Hgb 9.5 L (13.0-17.5) gm/dL Hct 28.7 L (39.0-53.0) % MCV 79.4 L (80.0-100.0) fL RDW 16.9 H (11.5-15.5) % Creatinine 0.56 L (0.66-1.25) mg/dL Glucose 287 H (74-99) mg/dL POC Glucose (mg/dL) 363 H (70-110) mg/dL Calcium 8.3 L (8.4-10.2) mg/dL 05/09/23 Range/Units 11:31 RBC (4.30-5.90) m/uL Hgb (13.0-17.5) gm/dL Hct (39.0-53.0) % MCV (80.0-100.0) fL RDW (11.5-15.5) % Creatinine (0.66-1.25) mg/dL Glucose (74-99) mg/dL POC Glucose (mg/dL) 233 H (70-110) mg/dL Calcium (8.4-10.2) mg/dL Microbiology - Last 24 Hours (Table) 05/06/23 21:57 Blood Culture - Preliminary Blood Assessment and Plan (1) Cellulitis of right lower extremity Current Visit: Yes Status: Acute Code(s): L03.115 - CELLULITIS OF RIGHT LOWER LIMB SNOMED Code(s): 19560944450803978 Plan: 1patient presented to hospital with sepsis Source is likely right lower extremity cellulitis in this patient who did have a right big toe plantar wound likely the source of this infection 2dry protective dressing to the right big toe wound 3-patient CT has been suggestive of abscess and there is also evidence of hardware patient has been evaluated by orthopedics recommending transfer to [facility] with the patient did have previous surgery, patient to continue with the Unasyn and vancomycin till the patient is evaluated by ID at that facility Dictation was produced using [employer] dictation software. please excuse any grammatical, word or spelling errors. Time with Patient: Less than 30
== END 2023-05-09 17:42 | disposition short-term general hospital (02) | DRG 720 ==
LOC: EC 09:52 → OBSVTOIN 13:42 → 6NMEDSUR 13:42 → 4SSUR 14:51
PROVIDERS: ADMIT Student in an Organized Health Care Education/Training Program; ATTEND Student in an Organized Health Care Education/Training Program
DX: A41.9 Sepsis, unspecified organism (principal); D50.9 Iron deficiency anemia, unspecified; D56.9 Thalassemia, unspecified; E11.621 Type 2 diabetes mellitus with foot ulcer; E11.65 Type 2 diabetes mellitus with hyperglycemia; Z79.4 Long term (current) use of insulin; F14.90 Cocaine use, unspecified, uncomplicated; F17.210 Nicotine dependence, cigarettes, uncomplicated; F17.290 Nicotine dependence, other tobacco product, uncomplicated; F32.A Depression, unspecified; F41.9 Anxiety disorder, unspecified; R59.0 Localized enlarged lymph nodes; K56.7 Ileus, unspecified; L03.115 Cellulitis of right lower limb; L97.519 Non-pressure chronic ulcer of other part of right foot with unspecified severity; N14.19 Nephropathy induced by other drugs, medicaments and biological substances; T36.8X5A Adverse effect of other systemic antibiotics, initial encounter; R65.20 Severe sepsis without septic shock; Z79.899 Other long term (current) drug therapy; Z85.830 Personal history of malignant neoplasm of bone; Z91.041 Radiographic dye allergy status; Z91.148 Patient's other noncompliance with medication regimen for other reason; Z96.651 Presence of right artificial knee joint; Z71.3 Dietary counseling and surveillance; Z11.52 Encounter for screening for COVID-19; Z28.310 Unvaccinated for COVID-19; Z28.21 Immunization not carried out because of patient refusal; Z91.013 Allergy to seafood; Z90.2 Acquired absence of lung [part of]
CPT/HCPCS: 36415; 71046; 74177; 76870; 80048; 80053; 80202; 81001; 82150; 83036; 83605; 83690; 84145; 85025; 85027; 85610; 85652; 85730; 86140; 87040; 87636; 93005; 93975; 96361; 96365; 96366; 96367; 96375; 99285